=== PATIENT | female | born 1955 | race Caucasian/White ===

== ENCOUNTER 2024-05-30 14:45 | Outpatient (RCR) | payer MEDICARE, OTHER, SELFPAY | END 2024-07-20 13:09 | disposition home or self-care (01) | PROVIDERS: PCP Family Medicine; Visit Provider Student in an Organized Health Care Education/Training Program | DX: S46.912A Strain of unspecified muscle, fascia and tendon at shoulder and upper arm level, left arm, initial encounter (principal); M25.512 Pain in left shoulder; Z51.89 Encounter for other specified aftercare | CPT/HCPCS: 97012; 97110; 97140; 97162 ==

== ENCOUNTER 2024-07-15 15:58 | Outpatient (CLI) | payer MEDICARE, OTHER, SELFPAY | END 2024-07-15 15:59 | disposition home or self-care (01) | PROVIDERS: PCP Student in an Organized Health Care Education/Training Program; Visit Provider Family Medicine | DX: S09.93XA Unspecified injury of face, initial encounter (principal); W01.0XXA Fall on same level from slipping, tripping and stumbling without subsequent striking against object, initial encounter; Y92.009 Unspecified place in unspecified non-institutional (private) residence as the place of occurrence of the external cause | CPT/HCPCS: A0425; A0427 ==

== ENCOUNTER 2024-07-15 16:25 | Emergency (ER) | payer MEDICARE, OTHER, SELFPAY ==
[2024-07-15 16:25] VITALS: BP 169/100; PULSE 98; RESP 18; TEMP 36.9; O2SAT 99; BMI 29.7
--- NOTE | 2024-07-15 16:49 | ED.GENADULT ---
HPI - General Adult General Chief complaint: Laceration/Wound Stated complaint: Fall Time Seen by Provider: 07/15/24 16:27 History of Present Illness HPI narrative: This 69-year-old female comes in for evaluation of an injury that occurred just prior to arrival. She was carrying some water and beginning to go up some steps when she tripped and fell forward. She hit her nose on a step and had immediate bleeding from her nose. She does have a small laceration externally on the bridge of the nose also. Additionally she has pain in her right wrist with some swelling overlying the distal radius. She does not report any loss of consciousness. She does report a very mild headache. She does not report any neck pain. She was able to get up and ambulate after this event. She is not on any anticoagulants. Related Data Home Medications ?Medication ?Instructions ?Recorded ?Confirmed atorvastatin 20 mg tablet 20 mg PO DAILY 06/26/22 07/15/24 antiarthritic combination no.2 900 mg PO BID 09/27/23 07/10/24 mg tablet (glucosamine-chondroitin) calcium carbonate (Calcium 600) 1,500 mg PO BID 09/27/23 07/15/24 diphenhydramine HCl 25 mg capsule 25 mg PO QHS PRN 09/27/23 07/15/24 (Benadryl) multivitamin (Multiple Vitamins 1 tab PO QDAY 09/27/23 07/15/24 tablet) turmeric 400 mg capsule mg PO 09/27/23 07/10/24 ibuprofen 200 mg tablet 200 mg PO Q6H PRN 07/10/24 07/15/24 naproxen sodium 220 mg tablet 220 mg PO BID PRN 07/10/24 07/15/24 (Aleve) loratadine 10 mg capsule (Allergy 10 mg PO DAILY 07/15/24 07/15/24 Relief (loratadine)) melatonin 5 mg capsule 5 mg PO HS 07/15/24 07/15/24 Allergies Allergy/AdvReac Type Severity Reaction Status Date / Time No Known Drug Allergies Allergy Verified 07/10/24 13:41 Review of Systems Status of ROS: Reports: 10 or more systems reviewed and unremarkable except as noted in History and below Narrative: Constitutional: No fevers, no weight gain or loss. Eyes: No discharge. No vision changes. HENT: No congestion, no sore throat, no ear pain. Cardiovascular: No chest pain, no palpitations. Respiratory: No shortness of breath, no wheezes, no cough. Gastrointestinal: No abdominal pain, no vomiting, no diarrhea. Genitourinary: No dysuria, no hematuria. Musculoskeletal: Normal range of motion. Skin: No rashes, no pruritis. Neurological: No dizziness, weakness, sensory change, speech change. Endo/Heme/Allergies: No bruising or bleeding. No polydipsia. Pysch: no suicidality, no anxiety, no insomnia. All other systems reviewed and are negative. [facility] Medical History History of ectopic ?Z87.59 - Personal history of other complications of , childbirth and the puerperium (ICD-10) Surgical History Previous section ?Z98.891 - History of uterine scar from previous surgery (ICD-10) S/P foot surgery, right (08/19/10) ?Z98.890 - Other specified postprocedural states (ICD-10) Social History (Reviewed 09/27/23 @ 14:57 by Deborah Hodges ~ [facility], [facility]) Smoking Status: Never smoker Do you use any of these nicotine containing products: None How often do you have a drink containing alcohol: 4 or more times a week How many standard drinks containing alcohol do you have on a typical day: 1 or 2 AUDIT-C Alcohol total score: 4 Non-prescribed substance use: denies use Exam Narrative: Exam Narrative: Constitutional: Well-developed, well-nourished, no acute distress. HEENT: Small laceration on the bridge of the nose. Neck: Normal range of motion. Nontender. Supple. Heart: Regular. No murmurs. Normal rate. Intact distal pulses. Lungs: Clear to auscultation. No chest discomfort. No wheezes, rhonchi, or rales. Abdomen: Normal bowel sounds. Nontender. No rebound tenderness. Genitalia: Deferred. Back: No midline tenderness. Normal range of motion. Extremities: Swelling and bruising him a a right wrist at the distal radius. Skin: Intact. No rash. Warm. No erythema or pallor. Neurologic: No altered sensation. No weakness. Alert and oriented. Psychiatric: No suicidality. No anxiety or depression. No insomnia. Nursing notes and vitals signs are reviewed. Const: Vital Signs, click to edit/add: Vital Signs - 24 hr 07/15/24 16:25 Temperature 98.4 F Pulse Rate [Pulse Oximeter] 98 Respiratory Rate 18 Blood Pressure [Le ft Upper Arm] 169/100 H Pulse Oximetry 99 Oxygen Delivery Me thod Room Air Course Vital Signs Vital signs: Initial Vital Signs Temperature 98.4 F 07/15/24 16:25 Temperature Source Temporal Artery Scan 07/15/24 16:25 Pulse Rate 98 07/15/24 16:25 Pulse Rhythm Regular 07/15/24 16:25 Respiratory Rate 18 07/15/24 16:25 Blood Pressure 169/100 H 07/15/24 16:25 Blood Pressure Mean 123 H 07/15/24 16:25 Blood Pressure Position Sitting 07/15/24 16:25 Pulse Oximetry 99 07/15/24 16:25 Oxygen Delivery Method Room Air 07/15/24 16:25 Vital Signs Temperature 98.4 F 07/15/24 16:25 Pulse Rate 98 07/15/24 16:25 Respiratory Rate 18 07/15/24 16:25 Blood Pressure 169/100 H 07/15/24 16:25 Pulse Oximetry 99 07/15/24 16:25 Oxygen Delivery Method Room Air 07/15/24 16:25 Temperature 98.4 F 07/15/24 16:25 Pulse Rate 98 07/15/24 16:25 Respiratory Rate 18 07/15/24 16:25 Blood Pressure 169/100 H 07/15/24 16:25 Pulse Oximetry 99 07/15/24 16:25 Oxygen Delivery Method Room Air 07/15/24 16:25 Medical Decision Making MDM Narrative Medical decision making narrative: This patient comes in because of a fall that occurred just prior to arrival. She has a small laceration on the bridge of her nose that is punctate and not in need of any repair. There is no ongoing bleeding. CT imaging of her head shows no intracranial abnormality. She does have a moderately displaced nasal fracture. X-ray of the right wrist also shows a distal radius fracture that is intra-articular. The edges of the fracture are in rather good position so I simply placed a volar splint using Ortho Glass material. I advised her to follow-up with orthopedic clinic for ongoing management. Imaging Data XR R Wrist: Radiologist's impression: Intra-articular radial styloid process fracture. CT scan - head: Radiologist's impression: Moderately displaced nasal bone fracture. Discharge Plan Discharge Clinical Impression: Fracture of nasal bone, Fracture of wrist Patient Disposition: Home, Self-Care Condition: Stable Additional Instructions: Wear wrist splint and use [id number] medicines as needed and directed. Follow up with orthopedic clinic for ongoing management. Call [phone] for appointment. Prescriptions: No Action ibuprofen 200 mg tablet 200 mg PO Q6H PRN naproxen sodium [Aleve] 220 mg tablet 220 mg PO BID PRN atorvastatin 20 mg tablet 20 mg PO DAILY calcium carbonate [Calcium 600] 600 mg calcium (1,500 mg) tablet 1,500 mg PO BID glucosamine-chondroitin 900 mg tablet PO BID turmeric 400 mg capsule PO multivitamin [Multiple Vitamins] Tablet 1 tab PO QDAY diphenhydramine HCl [Benadryl] 25 mg capsule 25 mg PO QHS PRN melatonin 5 mg capsule 5 mg PO HS Allergy Relief (loratadine) 10 mg capsule 10 mg PO DAILY Follow Up/Referrals: Lit Cheek MD [Primary Care Provider] - Stand Alone Forms: PrivacyCentral Info Instructions
[2024-07-15 18:25] VITALS: BP 149/88; PULSE 88; RESP 18; O2SAT 98
--- OUTSIDE RECORDS SUMMARY | 2024-07-15 18:30 | XMS_ITS | Clinical Summary ---
Author Organization [facility] Address [address] [place] [id number] Care Team Providers Care Criminal Defense Attorney Name Role Phone Melina Ambrose Primary Care Provider [phone] Allergies No known active allergies Medications multivitamin (MVI) tablet Take 1 tablet by mouth once daily. 0 1 Active ibuprofen (ADVIL; MOTRIN) 200 mg tablet Take 2 tablets by mouth 4 times daily if needed. 0 8 Active naproxen (ALEVE) 220 mg tablet Take 1 tablet by mouth 2 times daily with meals. 0 8 Active diphenhydrAMINE (BENADRYL) 25 mg capsule Active loratadine (Allergy Relief, loratadine,) 10 mg tablet Active melatonin 5 mg tab tablet Active calcium carbonate/vitamin D2 (CALCIUM 600 + D ORAL) 2 Active atorvastatin (LIPITOR) 20 mg tabletIndications:H yperlipidemia, unspecified hyperlipidemia type TAKE 1 TABLET(20 MG) BY MOUTH AT BEDTIME 90 Tablet 2 4 Active turmeric 400 mg cap Take 400 mg by mouth one time. Active glucosam-chondroiti n-diet cb25 116-100 mg cap Take by mouth two times daily. Active Active Problems Problem Noted Date Diagnosed Date Chronic pain of both knees 09/10/2023 Hyperlipidemia 09/10/2023 Left leg paresthesias 07/28/2021 Colon polyp 12/15/2010 Overview (09/30/2021): Colonoscopy 11/2010 polyp repeat in 5 years Colonoscopy 09/2021 normal, repeat in 10 years with propofol Allergic rhinitis, cause unspecified OSTEOPENIA Overview (07/12/2007): at the femoral necks bone density done 12/16/04 Resolved Problems Problem Noted Date Diagnosed Date Resolved Date Insomnia, idiopathic 07/28/2021 024 Routine general medical exam ination at a health care facility 07/28/2021 Overview (07/12/2007): Lipids - 12/08/04 - cholesterol - 207, TG - 83, LDL - 123 Dexa- 12/16/04 mammo-? Colon - has h/o colon polyps, no date avail. for last colonoscopy Pap/pelvic -12/09/02 - neg Thyroid- none found Hep B- 02/07/97, 10/01/04 Hep A - 10/01/04 Tetanus-02/12/97 Diabetic-no Stress test - - for exercise induced SVT Encounters Date Type Department Care Team Description 06/15/2024 2:00 PM HOT BLAST WORKER Ancillary Procedure [facility] [address] [place] [address] 06/15/2024 Travel 06/13/2024 11:30 AM HOT BLAST WORKER Ancillary Procedure [facility] [address] [place] [address] 06/12/2024 Travel 06/08/2024 2:05 PM HOT BLAST WORKER Office Visit [facility] [address] [place] [address] Melina Ambrose, DO Follow Up (Left shoulder pain since 02/02/24 /ROM has improved a little since PT /Pain at worse 01/24); Establish Care 06/08/2024 Travel from Last 3 Months Immunizations Name Administration Dates Next Due AMB Influenza, IIV4 PF (=>6 mos Flulaval,Fluzone Fluarix)(Flu Clinic Only) 04/04/2018 Amb Influenza, Inactivated A IIV4 (Age 65+ Years) Preserv Free 02/07/2020 COVID-19 VACCINE SPIKEVAX (M ODERNA 50MCG/0.5ML) 12YO+ PFS 09/10/2023 COVID-19 vaccine (Pfizer-Bio NTech 10mcg/0.2mL) 5-11YO BIVALENT PF, MDV 02/17/2024 COVID-19 vaccine (Pfizer-Bio NTech 30mcg/0.3mL) 12YO+ BIVALENT PF, MDV 11/23/2022,02/02/2022 COVID-19 vaccine (Pfizer-Bio NTech 30mcg/0.3mL) 12YO+ BENNETT-SUCROSE PF, MDV 09/03/2021 COVID-19 vaccine (Pfizer-Bio NTech 30mcg/0.3mL) PF, MDV 03/19/2021 Hepatitis A (Adult) 10/01/2004 Hepatitis B (Adult) 10/01/2004,02/07/1997 Influenza A (H1N1), Inactiva patria (Age >=3 Years) 07/04/2009 Influenza, High-dose Inactivated 03/07/2024 Influenza, High-dose Quadriv alent Inactivated 02/11/2023,03/12/2021 Influenza, IIV3 (Age >=3 years) 06/02/19 14,07/13/2011,07/04/2009,04/04 Influenza, Inactivated AIIV4 (Age 65+ Years) Preserv Free 01/21/2022 Pneumococcal Conj 20-valent (Prevnar 20) 07/31/2022 Pneumococcal Poly,23-Valent (Pneumovax) 07/28/2021 RSV, Recombinant ADJ Reconst ituted (Arexvy 120MCG/0.5mL) 06/01/2023 Td (Age >=7 Years) 02/12/1997 Tdap 08/19/2021,07/04/2009 Zoster (Shingrix-RZV, recombinant) 12/08/2021, Family History Medical History Relation Name Comments Heart attack Daughter DC and stent ag e 41 Heart Disease Father at ag e 54 of DC Cancer-breast Maternal Aunt 2 aunts Cancer Mother 2006 malignant melan joshua Cancer-breast Mother 2007 non-genetic fo rm of breast cancer Diabetes Paternal Grandfather Relation Name Status Comments Daughter Alive Father age 54/DC Maternal Aunt Mother 2007 Alive Paternal Grandfather Social History Tobacco Use Types Packs/Day Years Used Date Smoking Tobacco: Never Passive Smoke Exposure: Never Smokeless Tobacco: Never Tobacco Cessation:Counseling Given: Yes Alcohol Use Standard Drinks/Week Comments Yes 0 (1 standard drink = 0.6 oz pur e alcohol) one daily PHQ-2 Answer Date Recorded PHQ-2 TOTAL SCORE 0 09/10/2023 Social Connections Answer Date Recorded Do you often feel lonely or isolated from those around you? 0 09/10/2023 Financial Resource Strain Answer Date R ecorded Difficulty of Paying Living Expenses 3 09/10/2023 Difficulty of Paying Living Expenses Not on file 09/10/2023 Food Insecurity Answer Date Recorded Do you worry your food will run out before you are able to buy more? 1 09/10/2023 Transportation Needs Answer Date Record ed Does lack of transportation keep you from medica l appointments? 1 09/10/2023 Does lack of transportation keep you from work, meetings or getting things that you need? 1 09/10/2023 Housing Stability Answer Date Recorded What is your housing situation today? 1 09/10/2023 Utilities Answer Date Recorded Do you have trouble paying f or utilities (for example, heat, electricity, water, phone)? 1 09/10/2023 Comments No Sex and Gender Information Value Date Recorded Sex Assigned at Not on file Legal Sex Female 5:41 AM HOT BLAST WORKER Gender Identity Not on file Sexual Orientation Not on file Obstetrics History Last Filed Vital Signs Vital Sign Reading Time Taken Comments Blood Pressure 155/85 06/08/2024 2:19 PM HOT BLAST WORKER Pulse 92 06/08/2024 2:19 PM HOT BLAST WORKER Temperature 36.7 C (98.1 F) 09/13/2017 11:51 AM CDT Respiratory Rate 18 01/18/2015 5:21 PM CDT Oxygen Saturation 90% 06/08/2024 2:19 PM HOT BLAST WORKER Inhaled Oxygen Concentration - - Weight 70.5 kg (155 lb 8 oz) 06/08/2024 2:19 PM HOT BLAST WORKER Height 153.1 cm (5' 0.28) 09/10/2023 10:43 AM C DT Body Mass Index 30.09 09/10/2023 10:43 AM CDT Plan of Treatment Upcoming Encounters Date Type Department Care Team (Late st Contact Info) Description 08/16/2024 1:00 PM CDT Office Visit [facility] [address] [place] [address] Brendon Lanier MD [address] [place] [address] 09/15/2024 2:05 PM CDT Office Visit [facility] [address] [place] [address] Melina Ambrose DO [address] [place] [address] 10/13/2024 2:05 PM CDT Office Visit [facility] [address] [facility] [place] [address] Melina Ambrose DO [address] [place] [address] Health Maintenance Due Date Last Done Comments COVID-19 vaccine series ( season) 2024 02/17/2024, 09/10/2023, 02/17/2023, Additional history exists BMI (ht and wt on same day) for age 18+ 09/09/2024 09/10/2023, 07/31/2022, 07/28/2021, Additional history exists Depression screening for age 12+ 09/09/2024 09/10/2023, 07/31/2022, 07/28/2021, Additional history exists Medicare Wellness for age 65+ 09/10/2024, 07/31/2022, 07/28/2021 Mammogram for age 45-75 10/12/2024 10/13/19 24, 09/08/2022, 08/05/2021 Lipids for age 45-75 09/09/2028 09/10/2023, 07/31/2022, 10/28/2021, Additional history exists Tetanus booster 08/20/2031 08/19/2021, 06/17, 02/12/1997 Colonoscopy through age 75 10/01/203109/30, 09/30/2021, 09/30/2021, Additional history exists Hepatitis C screening for ag e 18-79 Completed 07/28/2021 Tdap Completed 08/19/2021, 07/04/2009 Zoster (shingles) series for age 50+ Completed 12/08/2021, 08/26/2021 Pneumococcal series for age 50+ Completed , 07/28/2021 RSV vaccine for adults or Completed 06/01/2023 Influenza for age 65+ Completed 03/07/2024 , 02/11/2023, 01/21/2022, Additional history exists DEXA/DXA scan for age 65+ Completed 06/13/2024, Procedures Procedure Name Priority Date/Time Associated Diagnosis Comments MR SHOULDER LEFT WO Routine 06/15/2024 2 :34 PM HOT BLAST WORKER Chronic left shoulder pain XR DXA BONE DENSITY 2 SITES AXIAL Routine 06/13/2024 11:57 AM HOT BLAST WORKER Postmenopausal XR MAMMO BOBBI BILAT SCREEN Routine 10/13/2023 12:10 PM CDT Encounter for screening mammogram for malignant neoplasm of breast LIPID PANEL W REFLEX MEASURED LDL Routine 09/10/2023 11:46 AM CDT Hyperlipidemia, unspecified hyperlipidemia type COLONOSCOPY SCREENING Routine 09/30/2021 12:57 PM CDT History of colon polyps ANTI HCV Routine 07/28/2021 4:17 PM CDT Need for hepatitis C screening test from Last 3 Months or Most Recently Relevant to Health Maintenance Results * MR SHOULDER LEFT WO (06/15/2024 2:34 PM HOT BLAST WORKER) Anatomical Region Laterality Modality SHOULDER L Magnetic Resonan ce 06/16/2024 11:1 2 AM HOT BLAST WORKER Impressions 06/16/2024 11:12 AM HOT BLAST WORKER 1. Glenohumeral chondromalacia. No significant secondary degenerative changes. 2. Cartilaginous intra-articular bodies favored over focal synovitis for the well-defined oval intermediate signal filling defects subscapular recess and axillary recess. 3. Minor AC DJD. 4. Mild subacromial/subdeltoid bursitis. Dictated by Brendon Reilly MD @ 06/16/2024 11:12:28 AM (Electronically Signed) Narrative 06/16/2024 11:12 AM HOT BLAST WORKER For Patients: As a result of the Cures Act, medical imaging exams and procedure reports are released immediately into your electronic medical record. You may view this report before your referring provider. If you have questions, please contact your health care provider. EXAM: MRI OF THE LEFT SHOULDER, WITHOUT CONTRAST CLINICAL INDICATION: Chronic pain. PRIOR SURGERY: None reported. COMPARISON PLAIN FILMS: 22 February 2024 COMPARISON CROSS-SECTIONAL IMAGING STUDIES: None available at time of interpretation. TECHNICAL: Axial, sagittal oblique and coronal oblique T1, PD, PD FS and T2-weighted images. FINDINGS: GLENOHUMERAL JOINT: Effusion/Cyst: Upper normal physiologic quantity of joint fluid. No paralabral or periarticular cyst or ganglion. Humeral Head Articular Cartilage: Diffuse high-grade 2 to grade 3 thinning. No secondary degenerative changes significance. Glenoid Articular Cartilage: Grade 2 thinning. Loose Bodies: Overall intermediate signal roughly 7 x 4 mm filling defects in the posterior axillary recess and subscapular recess (image 9 and 14 series 12 and image 18 and 10 series 8). Capsule: No convincing evidence of adhesive capsulitis or capsular injury. OSSEOUS STRUCTURES: No fracture, marrow edema or marrow replacement process. CORACOACROMIAL ARCH: Acromial Morphology: Type 1 acromial morphology. Slight anterior and lateral downsloping. No os acromiale. No significant subacromial spur. Lateral acromial thickness is 7 mm. Acromiohumeral Interval: The acromiohumeral interval is adequately patent. At its narrowest, the interval measures 6 mm. No abnormal thickening of the coracoacromial ligament. Coracohumeral Interval: The coracohumeral interval is normal. At its narrowest, the coracohumeral interval measures greater than 10 mm. Coracoid index is less than 10 mm. ACROMIOCLAVICULAR JOINT REGION: AC Joint: Mild degenerative arthrosis. No significant osteophyte or joint space widening. Ligaments: The coracoclavicular ligaments are intact. BURSAE: Subacromial-Subdeltoid: Thin line of fluid and edema with some intermediate signal synovitis. Subcoracoid: No abnormal bursal edema, thickening or bursal fluid. ROTATOR CUFF TENDONS AND MUSCLES AND DELTOID: Supraspinatus: No tendinosis, tendon tearing, muscle atrophy or muscle edema. Infraspinatus: No tendinosis, tendon tearing, muscle atrophy or muscle edema. Teres Minor: No tendinosis, tendon tearing, muscle atrophy or muscle edema. Subscapularis: No tendinosis, tendon tearing, muscle atrophy or muscle edema. Deltoid: No muscle atrophy or edema. BICEPS TENDON, LONG HEAD: The long head of the biceps tendon is appropriately positioned within the bicipital groove without tendon subluxation or dislocation. The biceps angel mechanism is intact. The biceps anchor appears grossly intact. There is no significant tendinosis or tendon tearing. GLENOID LABRUM: Within the limitations of non-arthrographic technique, the superior labrum and biceps-labral complex are intact. The anteroinferior labrum is intact without Bankart or Bankart-variant labral tear. The remainder of the labrum is similarly intact. OTHER FINDINGS: There is no abnormality within the suprascapular or spinoglenoid notches nor within the quadrilateral space. No axillary adenopathy or mass. Procedure Note Brendon Reilly MD - 06/16/2024 For Patients: As a result of the Century Cures Act, medical imagingexams and procedure reports are released immediately into your electronicmedical record. You may view this report before your referring provider.If you have questions, please contact your health care provider. EXAM: MRI OF THE LEFT SHOULDER, WITHOUT CONTRAST CLINICAL INDICATION: Chronic pain. PRIOR SURGERY: None reported. COMPARISON PLAIN FILMS: 22 February 2024 COMPARISON CROSS-SECTIONAL IMAGING STUDIES: None available at time of interpretation. TECHNICAL: Axial, sagittal oblique and coronal oblique T1, PD, PD FS and T2-weightedimages. FINDINGS: GLENOHUMERAL JOINT: Effusion/Cyst: Upper normal physiologic quantity of joint fluid. Noparalabral or periarticular cyst or ganglion. Humeral Head Articular Cartilage: Diffuse high-grade 2 to grade 3thinning. No secondary degenerative changes significance. Glenoid Articular Cartilage: Grade 2 thinning. Loose Bodies: Overall intermediate signal roughly 7 x 4 mm filling defectsin the posterior axillary recess and subscapular recess (image 9 and 14series 12 and image 18 and 10 series 8). Capsule: No convincing evidence of adhesive capsulitis or capsular injury. OSSEOUS STRUCTURES: No fracture, marrow edema or marrow replacement process. CORACOACROMIAL ARCH: Acromial Morphology: Type 1 acromial morphology. Slight anterior andlateral downsloping. No os acromiale. No significant subacromial spur.Lateral acromial thickness is 7 mm. Acromiohumeral Interval: The acromiohumeral interval is adequately patent.At its narrowest, the interval measures 6 mm. No abnormal thickening ofthe coracoacromial ligament. Coracohumeral Interval: The coracohumeral interval is normal. At itsnarrowest, the coracohumeral interval measures greater than 10 mm.Coracoid index is less than 10 mm. ACROMIOCLAVICULAR JOINT REGION: AC Joint: Mild degenerative arthrosis. No significant osteophyte or jointspace widening. Ligaments: The coracoclavicular ligaments are intact. BURSAE: Subacromial-Subdeltoid: Thin line of fluid and edema with someintermediate signal synovitis. Subcoracoid: No abnormal bursal edema, thickening or bursal fluid. ROTATOR CUFF TENDONS AND MUSCLES AND DELTOID: Supraspinatus: No tendinosis, tendon tearing, muscle atrophy or muscleedema. Infraspinatus: No tendinosis, tendon tearing, muscle atrophy or muscleedema. Teres Minor: No tendinosis, tendon tearing, muscle atrophy or muscleedema. Subscapularis: No tendinosis, tendon tearing, muscle atrophy or muscleedema. Deltoid: No muscle atrophy or edema. BICEPS TENDON, LONG HEAD: The long head of the biceps tendon is appropriately positioned within thebicipital groove without tendon subluxation or dislocation. The bicepspulley mechanism is intact. The biceps anchor appears grossly intact.There is no significant tendinosis or tendon tearing. GLENOID LABRUM: Within the limitations of non-arthrographic technique, the superior labrumand biceps-labral complex are intact. The anteroinferior labrum is intactwithout Bankart or Bankart-variant labral tear. The remainder of thelabrum is similarly intact. OTHER FINDINGS: There is no abnormality within the suprascapular or spinoglenoid notchesnor within the quadrilateral space. No axillary adenopathy or mass. IMPRESSION: 1. Glenohumeral chondromalacia. No significant secondary degenerativechanges. 2. Cartilaginous intra-articular bodies favored over focal synovitis forthe well-defined oval intermediate signal filling defects subscapularrecess and axillary recess. 3. Minor AC DJD. 4. Mild subacromial/subdeltoid bursitis. Dictated by Brendon Reilly MD @ 06/16/2024 11:12:28 AM (Electronically Signed) us Melina Ambrose DO MR Final Result * (ABNORMAL) XR DXA BONE DENSITY 2 SITES AXIAL (06/13/2024 11:57 AM HOT BLAST WORKER) Anatomical Region Laterality Modality Spine, HIPS, HIPL, HIPR Other Impressions 06/20/2024 1:30 PM HOT BLAST WORKER Osteopenia RECOMMENDATIONS: The National Osteoporosis Foundation recommends pharmacologic treatment for patients with T-scores of -2.5 or less, patients with prior history of fragility fractures, or patients with 10-year probability of greater than 3% at hips or greater than 20% of suffering major osteoporotic fractures. Recommend continued optimization of calcium and vitamin D intake through dietary means and/or supplementation and regular exercise. Consider pharmacologic therapy for osteopenia with increased fracture risk. Follow-up bone density reading in 2 years if therapy initiated to assess therapeutic efficacy. Ivett Gauthier PA-C [facility] 06/20/2024 Narrative 06/20/2024 1:30 PM HOT BLAST WORKER For Patients: Results are automatically released to your [employer] ([employer]) account once available, in compliance with federal regulations. This means that you may see your results before your provider has had a chance to review them. Please allow 2-3 business days for your provider to comment on the results. XR DXA Bone Mineral Density (BMD) EXAM LOCATION: [facility] [address] [facility] [address] PATIENT NAME: Ava M West DATE OF : 1955 EXAM DATE: 06/13/2024 REQUESTING PROVIDER: Lit Cheek MD GENDER AT : female HEIGHT: 5' 0.28 (09/10/2023) WEIGHT: 155 lb 8 oz (06/08/2024) MENOPAUSAL STATUS: Postmenopausal RACE/ETHNICITY: White RISK FACTORS: White Race CURRENT MEDICATION FOR BONE LOSS: NONE INDICATION: Follow-up of existing osteopenia and Post-Menopause COMPARISON DATE(S): 2021 DXA scans are compared to prior studies for a patient only when the two (or more) studies were performed on the same scanner. It is not possible to compare data generated on one scanner to data from another because there are not standards in DXA equipment. This applies even if the two scanners are made by the same ditching machine operator. PROCEDURE: Dual-energy x-ray absorptiometry performed with routine technique. Reporting is completed in the form of a T-score. The T-score represents the standard deviation from peak bone mass based on young healthy adult. A Z-score is used for diagnosis in premenopausal women, and for men under the age of 50. FINDINGS: RESULT LUMBAR SPINE L1 - L2 BMD: 0.960 g/cm2 T-Score: - 1.8 Z-Score: - 0.3 Change from prior in 2021: Decrease 5.0%. RESULTS FEMUR Left femoral neck BMD: 0.725 g/cm2 T-Score: - 2.3 Z-Score: - 0.7 Change from prior in 2021: Increase 0.4%. Right femoral neck BMD: 0.703 g/cm2 T-Score: - 2.4 Z-Score: - 0.8 Change from prior in 2021: Decrease 2.2%. Left hip BMD: 0.893 g/cm2 T-Score: - 0.9 Z-Score: + 0.4 Change from prior in 2021: Increase 2.2%. Right hip BMD: 0.848 g/cm2 T-Score: - 1.3 Z-Score: + 0.1 Change from prior in 2021: Decrease 4.5%. WHO criteria: Normal: T-score at or above -1 SD Osteopenia: T-score between -1.1 and -2.4 SD Osteoporosis: T-score at or below -2.5 SD FRAX RISK CALCULATION (USED FOR OSTEOPENIA ONLY): 10-year probability of major osteoporotic fracture: 13.8%. 10-year probability of hip fracture: 3.3%. Lit Cheek MD DEXA Final Result * XR MAMMO BOBBI BILAT SCREEN (10/13/2023 12:10 PM CDT) Anatomical Region Laterality Modality BREASTS, Breast Left, Breast Right Bilateral Mammography Impressions 10/13/2023 3:01 PM CDT There is no radiographic evidence for malignancy. Recommend annual mammograms. MAMMOGRAM ASSESSMENT: ACR 1 Negative PATIENTS: You will also receive a letter with your examination results in an easy to read format. If you have questions about your results, please contact your referring provider. Narrative 10/13/2023 3:01 PM CDT For Patients: As a result of the Cures Act, medical imaging exams and procedure reports are released immediately into your electronic medical record. You may view this report before your referring provider. If you have questions, please contact your health care provider. XR MAMMO BOBBI BILAT SCREEN [[id number]] CLINICAL HISTORY: This is an asymptomatic 68 y.o. patient. INDICATION FOR EXAM: Mammogram Screening. TECHNIQUE: CC & MLO views were obtained. This study was evaluated with the assistance of Computer-Aided Detection. Breast Tomosynthesis was used in interpretation. COMPARISON FILM: Yes 09/08/22 [employer] [employer] [facility] FINDINGS: The breasts are heterogeneously dense, which may obscure small masses. There are no dominant masses, suspicious micro calcifications or areas of architectural distortion. Lit Cheek MD MAMMO Final Result * LIPID PANEL W REFLEX MEASURED LDL (09/10/2023 11:46 AM CDT) CHOLESTEROL,TOTAL 189 100 - 199 mg/dL 09/10/2023 10:12 PM CDT [facility] Comment: Cholesterol, Total Reference Ranges Desirable <200 mg/dL Borderline 200-239 mg/dL High >=240 mg/dL TRIGLYCERIDES 76 <150 mg/dL 09/10/2023 10:12 PM CDT [facility] HDL CHOLESTEROL 77 >40 mg/dL 10:12 PM CDT [facility] NON-HDL CHOLESTEROL 112 <145 mg/dl 09/10/2023 10:12 PM CDT [facility] CHOL/HDL RATIO 2.45 <4.50 09/10/2023 10:12 PM CDT [facility] LDL CHOLESTEROL 97 <=130 mg/dL 09/10/2023 10:12 PM CDT [facility] VLDL CHOLESTEROL 15 <=30 mg/dL 09/10/2023 10:12 PM CDT [facility] PROVIDER ORDERED STATUS RANDOM 09/10/2023 10:12 PM CDT [facility] Blood BLOOD SPECIMEN / Unknown Venipuncture / Unknown 09/10/2023 11:46 AM CDT 09/10/2023 11:48 AM CDT Lit Cheek MD CHEMISTRY Final Result [facility] [address] [place] [address], [place] * COLONOSCOPY (09/30/2021 1:22 PM CDT) 09/30/2021 1:22 PM CDT Narrative Transcriptions Sumanth Sky MD - 09/30/2021 1:50 PM CDT Patient Name: Ava West Procedure Date: 09/30/2021 Gender: Female Date of : 1955 Admit Type: Outpatient Procedure: Colonoscopy Proceduralist: Sumanth Sky MD , Celestina Escobar (Nurse) Referring MD: Lit Cheek Indications/Pre-Op Diagnosis: High risk colon cancer surveillance:Personal history of adenoma less than 10 mm in size, Last colonoscopy: June 2011 Medications: Fentanyl 200 micrograms IV, Midazolam 4 mgIV, The level of sedation administered wasmoderate Procedure Description: The patient had risks, benefits and alternatives explained to andgave informed consent. The patient had a stable cardiopulmonary status and judged an adequate candidate for conscious sedation. The [id number] was passed through the anus and advanced tothe cecum, identified by appendiceal orifice and ileocecal valve. The colonoscopy was performed without difficulty. The patient toleratedthe procedure well. The quality of the bowel preparation was good. The ileocecal valve, appendiceal orifice, and rectum were photographed. Complications: No immediate complications. Estimated Blood Loss & Specimen: Estimated blood loss: none. Specimen collected - None Findings: The perianal and digital rectal examinations were normal. The exam was otherwise without abnormality on direct and retroflexion views. Impressions/Post-Op Diagnosis: - The examination was otherwise normal on direct and retroflexionviews. - No specimens collected. Recommendation: - Patient has a contact number available for emergencies. The signsand symptoms of potential delayed complications were discussed with the patient. Return to normal activities tomorrow. Written discharge instructions were provided to the patient. - Patient has a contact number available for emergencies. The signsand symptoms of potential delayed complications were discussed with the patient. Return to normal activities tomorrow. Written discharge instructions were provided to the patient. - Resume previous diet. - Continue present medications. - Repeat colonoscopy in 10 years for surveillance. - Patient's sedation for a repeat study will require Anesthesia staff assistance. Moderate Sedation: Moderate (conscious) sedation was administered by the endoscopy nurse and supervised by the endoscopist. The following parameters were monitored: oxygen saturation, heart rate, respiratory rate, blood pressure, adequacy of pulmonary ventilation and reponse to care. Please refer to the patient's medical record flowsheets and nursing notes for moderate sedation details. Total physician intraservice time was 20 minutes. Sumanth Sky MD 09/30/2021 1:50:29 PM This report has been signed electronically. Note Initiated On: 09/30/2021 1:22 PM Procedure Code(s): --- Professional --- 34395, Colonoscopy, flexible; diagnostic, including collection of specimen(s) bybrushing or washing, when performed (separateprocedure) Diagnosis Code(s): --- Professional --- Z86.010, Personal history of colonicpolyps CPT copyright 2020 [employer]. All rights reserved. The codes documented in this report are preliminary and upon vice president investor relations reviewmay be revised to meet current compliance requirements. Scope In: 1:26:24 PM Scope Withdrawal Time 0 hours 7 minutes 49 seconds Scope Out: 1:41:19 PM us Sumanth Sky MD PROCEDURE ORD Final Res ult * ANTI HCV (07/28/2021 4:17 PM CDT) HEPATITIS C ANTIBODY Non-React agustín Non-React agustín 07/29/2021 5:57 PM CDT [facility] Comment:Antibodies to HCV no t detected; does not exclude the possibility of exposure to HCV. Blood BLOOD SPECIMEN / Unknown Venipuncture / Unknown 07/28/2021 4:17 PM CDT 07/28/2021 4:18 PM CDT us Lit Cheek MD SEND OUTS Final Result [facility] [address] [place] [address], [place] from Last 3 Months or Most Recently Relevant to Health Maintenance Insurance MEDICARE PB ONLY [place] [id number] MEDICARE PART A HB ONLY Care Teams Criminal Defense Attorney Relationship Specialty Start Date End Date Melina Ambrose DO [address] [place] [address] PCP - General Family Practice 06/08/24
[2024-07-15 18:36] VITALS: BP 149/88; PULSE 88; RESP 18; TEMP 36.9
== END 2024-07-15 18:37 | disposition home or self-care (01) ==
PROVIDERS: Emergency Provider Emergency Medicine Emergency Medical Services; PCP Student in an Organized Health Care Education/Training Program
DX: S02.2XXA Fracture of nasal bones, initial encounter for closed fracture (principal); W10.9XXA Fall (on) (from) unspecified stairs and steps, initial encounter; S52.511A Displaced fracture of right radial styloid process, initial encounter for closed fracture
CPT/HCPCS: 29125; 70450; 70486; 73110; 99284

== ENCOUNTER 2024-10-10 13:45 | Outpatient (RCR) | payer MEDICARE, OTHER, SELFPAY | END 2024-10-11 11:06 | disposition home or self-care (01) | PROVIDERS: PCP Student in an Organized Health Care Education/Training Program; Visit Provider Family Medicine | DX: M19.012 Primary osteoarthritis, left shoulder (principal); M75.42 Impingement syndrome of left shoulder; Z51.89 Encounter for other specified aftercare | CPT/HCPCS: 97110; 97140; 97161 ==

== ENCOUNTER 2024-10-20 15:29 | Emergency (ER) | payer MEDICARE, OTHER, SELFPAY ==
[2024-10-20 15:33] VITALS: BP 161/96; PULSE 110; RESP 18; TEMP 36.9; O2SAT 98; BMI 30.3
--- NOTE | 2024-10-20 15:41 | ED_ITS ---
HPI - General Adult General Chief complaint: Extremity Pain/Injury, Upper Stated complaint: hurt head/left hand ring finger Time Seen by Provider: 10/20/24 15:34 History of Present Illness HPI narrative: Patient present to the emergency department complaining of an injury to her left hand, Patient was putting together a bed at home and tripped. Patient stuck her hand out to catch herself and her finger was deformed. Patient has a ring on that finger. Did put ice on the finger and that has helped. Finger is now straighter than it was initially. 69-year-old woman presenting to the emergency department with concern of an injury to her left ring finger. Fell and was putting out her hand struck her finger and this was deformed. Was swollen about twice the size. This has markedly improved may be related to icing that she has done. Finger is a little straighter now as well. She is not complaining of significant pain. She has not yet managed to remove the ring on this finger. Related Data Home Medications ?Medication ?Instructions ?Recorded ?Confirmed atorvastatin 20 mg tablet 20 mg PO DAILY 06/26/2210/15 antiarthritic combination no.2 900 mg PO BID 09/27/23 10/24/24 mg tablet (glucosamine-chondroitin) calcium carbonate (Calcium 600) 1,500 mg PO BID 10/24/24 diphenhydramine HCl 25 mg capsule 25 mg PO QHS PRN 10/24/24 (Benadryl) multivitamin (Multiple Vitamins 1 tab PO QDAY 09/27/23 10/24/24 tablet) turmeric 400 mg capsule mg PO 09/27/23 10/24/24 ibuprofen 200 mg tablet 200 mg PO Q6H PRN 07/10/24 0 10/24/24 naproxen sodium 220 mg tablet 220 mg PO BID PRN 10/24/24 (Aleve) loratadine 10 mg capsule (Allergy 10 mg PO DAILY 07/1510/24/24 Relief (loratadine)) melatonin 5 mg capsule 5 mg PO HS 07/15/24 10/24/24 Allergies Allergy/AdvReac Type Severity Reaction Status Date / Time No Known Drug Allergies Allergy Verified 10/24/24 13:05 Review of Systems Status of ROS: Reports: 6 or more systems reviewed and unremarkable except as noted in History and below [facility] Medical History (Updated 10/23/24 @ 14:54 by Tracey Taylor) Vitamin D deficiency ?E55.9 - Vitamin D deficiency, unspecified (ICD-10) Left leg paresthesias ?R20.2 - Paresthesia of skin (ICD-10) Chronic pain of both knees ?M25.561 - Pain in right knee (ICD-10) ?M25.562 - Pain in left knee (ICD-10) ?G89.29 - Other chronic pain (ICD-10) Osteopenia ?M85.80 - Other specified disorders of bone density and structure, unspecified site (ICD-10) Colon polyp ?K63.5 - Polyp of colon (ICD-10) Fracture closed, nasal bone ?S02.2XXA - Fracture of nasal bones, initial encounter for closed fracture (ICD-10) Allergic rhinitis, cause unspecified ?J30.9 - Allergic rhinitis, unspecified (ICD-10) Hyperlipidemia ?E78.5 - Hyperlipidemia, unspecified (ICD-10) History of ectopic ?Z87.59 - Personal history of other complications of , childbirth and the puerperium (ICD-10) Surgical History (Updated 10/23/24 @ 11:36 by Ankita Hoskins ~ COILED COIL INSPECTOR, COILED COIL INSPECTOR) H/O wisdom tooth extraction ?K08.409 - Partial loss of teeth, unspecified cause, unspecified class (ICD- 10) Previous section ?Z98.891 - History of uterine scar from previous surgery (ICD-10) S/P foot surgery, right (08/19/10) ?Z98.890 - Other specified postprocedural states (ICD-10) Social History Smoking Status: Never smoker Do you use any of these nicotine containing products: None How often do you have a drink containing alcohol: 4 or more times a week How many standard drinks containing alcohol do you have on a typical day: 1 or 2 AUDIT-C Alcohol total score: 4 Non-prescribed substance use: denies use Exam Narrative: Exam Narrative: Pleasant. NAD. Icing her left hand. Head looks atraumatic. Only injury about the left hand and wrist looks to be a deformity at the proximal interphalangeal joint of the 4th finger. Does not appear to be fully located. Mildly swollen. The ring on this finger looks to not be excessively tight at this time Const: Vital Signs, click to edit/add: Vital Signs - 24 hr 10/20/24 15:33 Temperature 98.4 F Pulse Rate [Right Pulse Oximeter] 110 H Respiratory Rate 18 Blood Pressure [Ri ght Upper Arm] 161/96 H Pulse Oximetry 98 Oxygen Delivery Me thod Room Air Documenting provider has reviewed patient's vital signs: yes Course Vital Signs Vital signs: Initial Vital Signs Temperature 98.4 F 10/20/24 15:33 Temperature Source Temporal Artery Scan 10/20/24 15:33 Pulse Rate 110 H 10/20/24 15:33 Pulse Rhythm Regular 10/20/24 15:33 Pulse Strength 3+ Normal 10/20/24 15:33 Respiratory Rate 18 10/20/24 15:33 Blood Pressure 161/96 H 10/20/24 15:33 Blood Pressure Mean 117 H 10/20/24 15:33 Blood Pressure Position Sitting 10/20/24 15:33 Pulse Oximetry 98 10/20/24 15:33 Oxygen Delivery Method Room Air 10/20/24 15:33 Vital Signs Temperature 98.4 F 10/20/24 15:33 Pulse Rate 110 H 10/20/24 15:33 Respiratory Rate 18 10/20/24 15:33 Blood Pressure 161/96 H 10/20/24 15:33 Pulse Oximetry 98 10/20/24 15:33 Oxygen Delivery Method Room Air 10/20/24 15:33 Temperature 98.4 F 10/20/24 15:33 Pulse Rate 110 H 10/20/24 15:33 Respiratory Rate 18 10/20/24 15:33 Blood Pressure 161/96 H 10/20/24 15:33 Pulse Oximetry 98 10/20/24 15:33 Oxygen Delivery Method Room Air 10/20/24 15:33 Medications Administered Medications: Discontinued Medications Generic Name Dose Route Start Last Admin Trade Name Freq PRN Reason Stop Dose Admin Bupivacaine HCl 10 ml 10/20/24 18:21 10/20/24 18:23 Bupivacaine 0.25% 30 Ml INJECTION 10/20/24 18:22 10 ml ONCE ONE Administration Medical Decision Making MDM Narrative Medical decision making narrative: Appears to have a dislocation of this PIP joint. Prior to reduction, I would like to know whether not there is a fracture here possibly remove this ring. Will be going for x-ray shortly On independent X-ray reviewed by me does show dislocation of the proximal aspect of the middle phalanx on the proximal phalanx at the PIP joint. I do not see fracture Returned to attempt relocation. Still quite too tender. Did inject the finger with bupivacaine in a ring block essentially. Managed to relocate the finger without notable difficulty. Flexes and extends without difficulty although when extension does continue to partially dislocate/sublux at the PIP joint. With this reduced I did try to to remove her ring but this is not going to be possible with enough swelling in the area. Decided to cut off her ring. Done with ring cutter without difficulty. No trauma beyond skin indent to the finger is noted Anticipating follow-up I did speak to Orthopedics on-call. They would like postreduction films as well. Did this and appears to be located by my independent read. Radiology over-read also noting some possible minimal residual subluxation versus underlying extension deformity. I did place a dorsal finger splint over the left 4th finger extending onto the hand. This appears to be well tolerated and stabilizing. See patient discharge plan for further discussion Please wear this splint for stability until further recommendations from Orthopedics. Can certainly remove it to carefully clean up if needed. Anticipate a call from orthopedics by noon on Wednesday. If you do not hear from them please feel free to call [phone]. Medical Records Medical records reviewed: Yes I reviewed the patient's medical records Discharge Plan Discharge Clinical Impression: Dislocated finger, Closed head injury Patient Disposition: Home w/ Parent or Adult Condition: Improved Additional Instructions: Please wear this splint for stability until further recommendations from Orthopedics. Can certainly remove it to carefully clean up if needed. Anticipate a call from orthopedics by noon on Wednesday. If you do not hear from them please feel free to call [phone]. Prescriptions: No Action ibuprofen 200 mg tablet 200 mg PO Q6H PRN naproxen sodium [Aleve] 220 mg tablet 220 mg PO BID PRN atorvastatin 20 mg tablet 20 mg PO DAILY calcium carbonate [Calcium 600] 600 mg calcium (1,500 mg) tablet 1,500 mg PO BID glucosamine-chondroitin 900 mg tablet PO BID turmeric 400 mg capsule PO multivitamin [Multiple Vitamins] Tablet 1 tab PO QDAY diphenhydramine HCl [Benadryl] 25 mg capsule 25 mg PO QHS PRN melatonin 5 mg capsule 5 mg PO HS Allergy Relief (loratadine) 10 mg capsule 10 mg PO DAILY Follow Up/Referrals: CELSA GORE DO [Primary Care Provider, Family Practice] [facility] Info Instructions
--- NOTE | 2024-10-20 15:50 | CRLHL7_ITS ---
For Patients: As a result of the Cures Act, medical imaging exams and procedure reports are released immediately into your electronic medical record. You may view this report before your referring provider. If you have questions, please contact your health care provider. INDICATION: Dislocation TECHNIQUE: Three views of the left ring finger COMPARISON: None FINDINGS: Dorsal dislocation of the middle phalanx with respect to the proximal phalanx. No fracture or other abnormality. IMPRESSION: Left ring finger PIP joint dislocation Dictated by Vernon Norwood MD @ 10/20/2024 4:31:11 PM (Electronically Signed)
--- OUTSIDE RECORDS SUMMARY | 2024-10-20 16:00 | XMS_ITS | Clinical Summary ---
Author Organization [facility] Address [address] [place] [id number] Care Team Providers Care Senior Planner Name Role Phone Melina Ambrose Primary Care Provider [phone] Allergies No known active allergies Medications multivitamin (MVI) tablet Take 1 tablet by mouth once daily. 0 08/14/19 11 Active ibuprofen (ADVIL; MOTRIN) 200 mg tablet Take 2 tablets by mouth 4 times daily if needed. 0 07/07/19 18 Active naproxen (ALEVE) 220 mg tablet Take 1 tablet by mouth 2 times daily with meals. 0 07/07/19 18 Active diphenhydrAMINE (BENADRYL) 25 mg capsule Active loratadine (Allergy Relief, loratadine,) 10 mg tablet Active melatonin 5 mg tab tablet Active calcium carbonate/vitamin D2 (CALCIUM 600 + D ORAL) 08/16/19 22 Active turmeric 400 mg cap Take 400 mg by mouth one time. Active glucosam-chondroit in-diet cb25 116-100 mg cap Take by mouth two times daily. Active atorvastatin 20 mg tabletIndications: Hyperlipidemia, unspecified hyperlipidemia type TAKE 1 TABLET(20 MG) BY MOUTH AT BEDTIME 90 Tablet 3 09/26/19 25 Active atorvastatin (LIPITOR) 20 mg tabletIndications: Hyperlipidemia, unspecified hyperlipidemia type TAKE 1 TABLET(20 MG) BY MOUTH AT BEDTIME 60 Tablet 07/24/19 25 025 Discontinued Active Problems Problem Noted Date Diagnosed Date Tear of medial meniscus of right knee 09/15/2024 Osteoarthritis of right knee 09/15/2024 Osteoarthritis of left knee 09/15/2024 Fracture of wrist 09/15/2024 Fracture of nasal bone 09/15/2024 Chronic pain of both knees 09/10/2023 Hyperlipidemia [...] Encounters Date Type Department Care Team Description 10/13/2024 2:05 PM CDT Office Visit [facility] [address] [place] [address] Melina Ambrose, Preoperative Exam (10/31/2024 - RIGHT total knee - Dr. Raphael - [facility] ) 10/13/2024 1:40 PM CDT Ancillary Procedure [facility] [address] [place] [address] 10/13/2024 Orders Only [facility] [address] [place] [address] Melina Ambrose DO 1 scan: (1-Ord) NFLD-EKG-10/13/24 10/13/2024 Travel 09/23/[address] [address] Melina Ambrose DO Refill Request (Atorvastatin) 09/21/2024 2:30 PM CDT Office Visit [address] [address] Ben Parish, AuD Hearing Problem 09/21/2024 Travel 09/15/2024 3:15 PM CDT Ancillary Procedure [address] [address] 09/15/2024 2:05 PM CDT Office Visit [address] [address] Melina Ambrose DO Medicare ANNUAL (subsequent) Visit (69 year old ); Arthritis (Wrist - broke RIGHT side - had surgery - wonders about arthritis or needing PT); Sleep Problem (Had previous referral for Dr. Sahu but never did - is interesting in meeting with him again ) 09/14/2024 Travel 08/16/2024 1:00 PM CDT Office Visit [address] [address] Brendon Lanier MD Musculoskeletal Problem (Left shoulder pain per primary physician Dr. Ambrose/Right knee surgery scheduled for this October 2024) 08/15/2024 Travel 07/23/[address] [address] Melina Ambrose DO Refill Request (Atorvastatin) 07/22/[address] [address] Melina Ambrose DO Refill Request (Atorvastatin) from Last 3 Months Immunizations Immunization Administration Dates Next Due AMB Influenza, IIV4 [...] (H1N1), Inactiva patria (Age >=3 Years) 07/04/2009 Influenza Virus, Unspecified 07/04/2009 Influenza, High-dose Inactivated 03/07/2024 Influenza, High-dose Quadriv alent Inactivated 02/11/2023,01/21/2022,03/12/2021,02/06,06/02/2013,07/13/2011,07/04/2009 ,04/04/2007 Influenza, IIV3 (Age >=3 years) 06/02/19 14,07/13/2011,07/04/2009,04/04 Influenza, Inactivated AIIV4 (Age 65+ Years) Preserv Free 01/21/2022 Pneumococcal Conj 20-valent (Prevnar 20) 07/31/2022 Pneumococcal Poly,23-Valent (Pneumovax) 07/28/2021 RSV, Recombinant ADJ Reconst ituted (Arexvy 120MCG/0.5mL) 06/01/2023 Td (Age >=7 Years) 02/12/1997 Tdap 08/19/2021,07/04/2009 Zoster (Shingrix-RZV, recombinant) 12/08/2021, Family History Medical History Relation Name Comments Heart attack Daughter IA and stent ag e 41 Heart Disease Father at ag e 54 of IA Cancer-breast Maternal Aunt 2 aunts Cancer Mother 2007 malignant melan joshua Cancer-breast Mother 2006 non-genetic fo rm of breast cancer Cancer-breast Other maternal Cousin Diabetes Paternal Grandfather Relation Name Status Comments Daughter Alive Father age 54/IA Maternal Aunt Mother 2006 Alive Other maternal Cousin Alive Paternal Grandfather Social History Tobacco Use Types Packs/Day Years Used Date Smoking Tobacco: Never Passive Smoke Exposure: Never Smokeless Tobacco: Never Tobacco Cessation:Counseling Given: Yes Alcohol Use Standard Drinks/Week Comments Yes 0 (1 standard drink = 0.6 oz pur e alcohol) one daily PHQ-2 Answer Date Recorded PHQ-2 TOTAL SCORE 0 09/15/2024 Social Connections Answer Date Recorded Do you often feel lonely or isolated from those around you? 0 09/15/2024 Financial Resource Strain Answer Date R ecorded Difficulty of Paying Living Expenses 3 09/15/2024 Difficulty of Paying Living Expenses Not on file 09/15/2024 Food Insecurity Answer Date Recorded Do you worry your food will run out before you are able to buy more? 1 09/15/2024 Transportation Needs Answer Date Record ed Does lack of transportation keep you from medica l appointments? 1 09/15/2024 Does lack of transportation keep you from work, meetings or getting things that you need? 1 09/15/2024 Housing Stability Answer Date Recorded What is your housing situation today? 1 09/15/2024 Utilities Answer Date Recorded Do you have trouble paying f or utilities (for example, heat, electricity, water, phone)? 1 09/15/2024 Comments No Sex and Gender Information Value Date Recorded Sex Assigned at Not on file Legal Sex Female 5:41 AM FURNACE ROASTER Gender Identity Not on file Sexual Orientation Not on file Obstetrics History Last Filed Vital Signs Vital Sign Reading Time Taken Comments Blood Pressure 135/79 10/13/2024 2:06 PM CDT Pulse 84 10/13/2024 2:06 PM CDT Temperature 37.2 C (99 F) 08/16/2024 1:07 PM CDT Respiratory Rate 18 01/18/2015 5:21 PM CDT Oxygen Saturation 98% 10/13/2024 2:06 PM CDT Inhaled Oxygen Concentration - - Weight 71.4 kg (157 lb 8 oz) 10/13/2024 2:06 PM CDT Height 152.9 cm (5' 0.2) 09/15/2024 2:15 PM CDT Body Mass Index 30.56 09/15/2024 2:15 PM CDT Plan of Treatment Health Maintenance Due Date Last Done Comments Hepatitis B series for 19+ ( 3 of 3 - 19+ 3-dose series) 11/26/2004 10/01/2004, 02/07/1997 COVID-19 vaccine series (2023- season) 2024 02/17/2024, 09/10/2023, 02/17/2023, Additional history exists BMI (ht and wt on same day) for age 18+ 09/15/2025 09/15/2024, 09/10/2023, 07/31/2022, Additional history exists Medicare Wellness for age 65+ 09/16/2025, 09/10/2023, 07/31/2022, Additional history exists Depression screening for age 12+ 10/13/2025 10/13/2024, 09/15/2024, 09/10/2023, Additional history exists Mammogram for age 45-75 10/13/2025 10/14/19 25, 10/13/2023, 09/08/2022, Additional history exists Lipids for age 45-75 09/15/2029 09/15/2024, 09/10/2023, 07/31/2022, Additional history exists Tetanus booster 08/20/2031 08/19/2021, 06/17, 02/12/1997 Colonoscopy through age 75 10/01/203109/30, 09/30/2021, 09/30/2021, Additional history exists Hepatitis C screening for ag e 18-79 Completed 07/28/2021 Tdap Completed 08/19/2021, 07/04/2009 Zoster (shingles) series for age 50+ Completed 12/08/2021, 08/26/2021 Pneumococcal series for age 50+ Completed , 07/28/2021 RSV vaccine for adults or Completed 06/01/2023 Influenza Vaccine Completed 03/07/2024, , 02/07/2020, Additional history exists DEXA/DXA scan for age 65+ Completed 06/13/2024, Procedures Procedure Name Priority Date/Time Associated Diagnosis Comments EKG 12 LEAD Routine 10/13/2024 4:22 PM CDT Pre-op evaluation CA READING EKG - NO CHARGE, COMP ONLY Routine 10/13/2024 4:21 PM CDT Pre-op evaluation HEMOGLOBIN Routine 10/13/2024 2:55 PM CDT Pre-op evaluation XR MAMMO BILAT SCREENING Routine 10/13/2024 1:59 PM CDT Visit for screening mammogram XR WRIST 3 VIEWS RIGHT Routine 09/15/2024 3:31 PM CDT Closed fracture of right wrist, initial encounter LIPID PANEL W REFLEX MEASURED LDL Routine 09/15/2024 3:20 PM CDT Hyperlipidemia, unspecified hyperlipidemia type BASIC METABOLIC PANEL Routine 09/15/2024 3:20 PM CDT Hyperlipidemia, unspecified hyperlipidemia type ALT (SGPT) Routine 09/15/2024 3:20 PM CDT Hyperlipidemia, unspecified hyperlipidemia type XR DXA BONE DENSITY 2 SITES AXIAL Routine 06/13/2024 11:57 AM FURNACE ROASTER Postmenopausal COLONOSCOPY SCREENING Routine 09/30/2021 12:57 PM CDT History of colon polyps ANTI HCV Routine 07/28/2021 4:17 PM CDT Need for hepatitis C screening test from Last 3 Months or Most Recently Relevant to Health Maintenance Results * EKG 12 LEAD (10/13/2024 4:22 PM CDT) us Melina Ambrose DO EKG ORD Final Result * CA READING EKG - NO CHARGE, COMP ONLY (10/13/2024 4:21 PM CDT) us Adei Shaqra DO PB - PROVIDER READINGS Final Res ult * HEMOGLOBIN (10/13/2024 2:55 PM CDT) HEMOGLOBIN 13.8 11.7 - 15.5 g/dL [facility] Blood BLOOD SPECIMEN / Unknown 10/13/2024 2:55 PM CDT 10/13/2024 2:56 PM CDT Melina Ambrose DO HEMATOLOGY Final Result [facility] [address] [place] [address], [facility] [address] [place] [address] * XR MAMMO BILAT SCREENING [[id number]] (10/13/2024 1:59 PM CDT) Anatomical Region Laterality Modality BREASTS, Breast Left, Breast Right Bilateral Mammography Impressions 10/13/2024 3:34 PM CDT There is no radiographic evidence for malignancy. Recommend annual mammograms. MAMMOGRAM ASSESSMENT: ACR 1 Negative PATIENTS: You will also receive a letter with your examination results in an easy to read format. If you have questions about your results, please contact your referring provider. Narrative 10/13/2024 3:34 PM CDT For Patients: As a result of the Century Cures Act, medical imaging exams and procedure reports are released immediately into your electronic medical record. You may view this report before your referring provider. If you have questions, please contact your health care provider. XR MAMMO BILAT SCREENING [[id number]] CLINICAL HISTORY: This is an asymptomatic 69 y.o. patient. INDICATION FOR EXAM: Mammogram Screening. TECHNIQUE: CC and MLO views were obtained. This study was evaluated with the assistance of Computer-Aided Detection. COMPARISON FILM: Yes 10/13/23 [facility] 09/08/22 [facility] FINDINGS: The breasts are heterogeneously dense, which may obscure small masses. There are no dominant masses, suspicious micro calcifications or areas of architectural distortion. [facility] Russellqra DO MAMMO Final Result * XR WRIST 3 OR MORE VIEWS RIGHT (09/15/2024 3:31 PM CDT) Anatomical Region Laterality Modality WRISTS, WRIST R Computed Radiogr aphy 09/18/2024 2:21 PM CDT Narrative 09/18/2024 2:21 PM CDT For Patients: As a result of the Cures Act, medical imaging exams and procedure reports are released immediately into your electronic medical record. You may view this report before your referring provider. If you have questions, please contact your health care provider. Indication: Injury, pain Technique: views Comparison: None Findings: Mild degenerative changes are present. There is no fracture. The alignment is normal. No erosions. Impression: No sign of acute fracture. Dictated by Ney Ozuna MD @ 09/18/2024 2:21:33 PM (Electronically Signed) Procedure Note Ney Ozuna MD - 09/18/2024 For Patients: As a result of the s Act, medical imagingexams and procedure reports are released immediately into your electronicmedical record. You may view this report before your referring provider.If you have questions, please contact your health care provider. Indication: Injury, pain Technique: views Comparison: None Findings: Mild degenerative changes are present. There is no fracture. The alignmentis normal. No erosions. Impression: No sign of acute fracture. Dictated by Ney Ozuna MD @ 09/18/2024 2:21:33 PM (Electronically Signed) Melina Russellq DO GENERAL IMAGING Final Result * LIPID PANEL W REFLEX MEASURED LDL (09/15/2024 3:20 PM CDT) CHOLESTEROL, TOTAL 196 <200 mg/dL [facility] HDL CHOLESTEROL 83 > OR = 50 mg/dL [facility] TRIGLYCERIDES 121 <150 mg/dL [facility] LDL-CHOLESTEROL 91 mg/dL (calc) [facility] Comment: Reference range: <100 Desirable range <100 mg/dL for primary prevention; <70 mg/dL for patients with CHD or diabetic patients with > or = 2 CHD risk factors. LDL-C is now calculated using the Jody calculation, which is a validated novel method providing better accuracy than the Friedewald equation in the estimation of LDL-C. Sumanth SAPP et al. CHRIS. 2013;310(19): 2316-0812 (http://education.Brandtone/faq/GKB761) CHOL/HDLC RATIO 2.4 <5.0 (calc) [facility] NON HDL CHOLESTEROL 113 <130 mg/dL (calc) [facility] Comment: For patients with diabetes plus 1 major ASCVD risk factor, treating to a non-HDL-C goal of <100 mg/dL (LDL-C of <70 mg/dL) is considered a therapeutic option. Blood BLOOD SPECIMEN / Unknown 09/15/2024 3:20 PM CDT 09/15/2024 3:20 PM CDT Adei OPHTHONIXq DO CHEMISTRY Final Result Performing Organization Address City/[facility]/ZIP Co de Phone Number [facility] [address] [address], [place] [phone] [facility] [address] [place] [address] * (ABNORMAL) ALT (SGPT) (09/15/2024 3:20 PM CDT) ALT 33(H) 6 - 29 U/L [facility] Blood BLOOD SPECIMEN / Unknown 09/15/2024 3:20 PM CDT 09/15/2024 3:20 PM CDT Melina Wellsq DO CHEMISTRY Final Result [facility] [address] [place] [address], [place] [phone] [facility] [address] [place] [address] * (ABNORMAL) BASIC METABOLIC PANEL (09/15/2024 3:20 PM CDT) GLUCOSE 92 65 - 99 mg/dL [facility] Comment: Fasting reference interval UREA NITROGEN (BUN) 19 7 - 25 mg/dL [facility] CREATININE 0.74 0.60 - 1.00 mg/dL [facility] EGFR 87 > OR = 60 mL/min/1. 73m2 [facility] BUN/CREATININE RATIO SEE NOTE: 6 - 22 (calc) [facility] Comment: Not Reported: BUN and Creatinine are within reference range. SODIUM 140 135 - 146 mmol/L [facility] POTASSIUM 5.2 3.5 - 5.3 mmol/L [facility] CHLORIDE 104 98 - 110 mmol/L [facility] CARBON DIOXIDE 24 20 - 32 mmol/L [facility] ELECTROLYTE BALANCE 12 7 - 17 mmol/L (calc) [facility] CALCIUM 10.6(H) 8.6 - 10.4 mg/dL [facility] Blood BLOOD SPECIMEN / Unknown 09/15/2024 3:20 PM CDT 09/15/2024 3:20 PM CDT us Melina Ambrose DO CHEMISTRY Final Result [facility] [address] [place] [address], [facility] [address] [place] [address] * (ABNORMAL) XR DXA BONE DENSITY 2 SITES AXIAL (06/13/2024 11:57 AM FURNACE ROASTER) Anatomical Region Laterality Modality Spine, HIPS, HIPL, HIPR Other Impressions 06/20/2024 1:30 PM FURNACE ROASTER Osteopenia RECOMMENDATIONS: The National Osteoporosis Foundation recommends [...] to assess therapeutic efficacy. Ivett Gauthier PA-C [facility] 06/20/2024 Narrative 06/20/2024 1:30 PM FURNACE ROASTER For Patients: Results are automatically released to your [facility] ([facility] [employer]) account once available, in compliance with federal regulations. This means that you may see your results before your provider has had a chance to review them. Please allow 2-3 business days for your provider to comment on the results. XR DXA Bone Mineral Density (BMD) EXAM LOCATION: [address] [address] PATIENT NAME: Ava West DATE OF : 1955 EXAM DATE: [...] two scanners are made by the same stand grinder. PROCEDURE: Dual-energy x-ray absorptiometry performed with routine [...] 13.8%. 10-year probability of hip fracture: 3.3%. us Lit Cheek MD DEXA Final Result * COLONOSCOPY (09/30/2021 1:22 PM CDT) 09/30/2021 [...] adequate candidate for conscious sedation. The [id number] was passed through the anus and advanced [...] 1:22 PM Procedure Code(s): --- Professional --- 72275, Colonoscopy, flexible; diagnostic, including collection of specimen(s) bybrushing or washing, when performed (separateprocedure) Diagnosis Code(s): --- Professional --- Z86.010, Personal history of colonicpolyps CPT copyright 2020 [employer]. All rights reserved. The codes documented in this report are preliminary and upon district medical examiner reviewmay be revised to meet current compliance requirements. Scope In: 1:26:24 PM Scope Withdrawal Time 0 hours 7 minutes 49 seconds Scope Out: 1:41:19 PM us Sumanth Sky MD PROCEDURE ORD Final Res ult * ANTI HCV (07/28/2021 4:17 PM CDT) HEPATITIS C ANTIBODY Non-React agustín Non-React agustín 07/29/2021 5:57 PM CDT [facility] Comment:Antibodies to HCV no t detected; does not exclude the possibility of exposure to HCV. Blood BLOOD SPECIMEN / Unknown Venipuncture / Unknown 07/28/2021 4:17 PM CDT 07/28/2021 4:18 PM CDT us Lit Cheek MD SEND OUTS Final Result [facility] [address] [place] [address], [place] from Last 3 Months or Most Recently Relevant to Health Maintenance Insurance MEDICARE PB ONLY [place] [id number] MEDICARE PART A HB ONLY Care Teams Senior Planner Relationship Specialty Start Date End Date Melina Ambrose DO [address] [facility] [place] [address] PCP - General Family Practice 06/08/24
--- NOTE | 2024-10-20 17:39 | CRLHL7_ITS ---
For Patients: As a result of the Century Cures Act, medical imaging exams and procedure reports are released immediately into your electronic medical record. You may view this report before your referring provider. If you have questions, please contact your health care provider. Indication: Left 4th digit dislocation status post reduction. Technique: Two views of the left hand 4th digit. Comparison: Left 4th digit radiographs 10/20/2024. Findings/Impression: Improved alignment of the 4th PIP joint status post reduction, now with questionable minimal residual subluxation versus underlying fixed extension deformity. Clinical correlation recommended. No acute fracture, dislocation, or suspicious osseous lesion. There is soft tissue swelling of the 4th digit. Dictated by José Miguel Trevino MD @ 10/20/2024 6:07:01 PM (Electronically Signed)
[2024-10-20] MEDS: BUPIVACAINE 0.25% 30 ML 10 ML INJECTION (18:23)
== END 2024-10-20 18:15 | disposition home or self-care (01) ==
PROVIDERS: Emergency Provider Family Medicine; PCP Student in an Organized Health Care Education/Training Program
DX: S63.255A Unspecified dislocation of left ring finger, initial encounter (principal); S09.90XA Unspecified injury of head, initial encounter; W01.10XA Fall on same level from slipping, tripping and stumbling with subsequent striking against unspecified object, initial encounter
CPT/HCPCS: 26770; 73140; 99283; 99284; J0665

== ENCOUNTER 2024-10-31 06:01 | Day surgery (SDC) | payer MEDICARE, OTHER, SELFPAY ==
[2024-10-31] VITALS (21 sets, daily range): BP systolic 109–180; BP diastolic 62–95; PULSE 70–89; RESP 13–18; TEMP 35.8–36.7; O2SAT 93–100; BMI 30.7
[2024-10-31] MEDS: OXYCODONE (CR) 10 MG TAB.ER.12H PO (06:30)
[2024-10-31] MEDS: ACETAMINOPHEN 500 MG TABLET 1000 MG PO ×3 (06:30→19:46)
[2024-10-31] MEDS: CELECOXIB 200 MG CAPSULE PO ×2 (06:30→21:15)
[2024-10-31] MEDS: SODIUM CHLORIDE 0.9 % (FLUSH) 10 ML SYRINGE IVF ×2 (06:50→21:16)
[2024-10-31] MEDS: LACTATED RINGERS 1000 ML 1,000 ML 100 ML IV ×2 (06:50→09:00)
[2024-10-31] MEDS: fentaNYL 100 MCG/2 ML inj IVP (07:11)
[2024-10-31] MEDS: MIDAZOLAM HCL 1 MG/ML inj IVP (07:11)
--- NOTE | 2024-10-31 07:16 | SUR.PREOP ---
TIME?OUT:?0710 PT/RN/MDA?VERIFICATION?OF?SURGICAL?SITE,?PROCEDURE,?AND?CONSENT OBTAINED?PRIOR?TO?INVASIVE?PROCEDURE.
--- NOTE | 2024-10-31 07:19 | W.PM.NB ---
Nerve Block Nerve Block Time Seen by Provider: 07:12 Date Seen: 10/31/24 Type of block requested by surgeon for post-operative analgesia: adductor canal Side: right Time out performed: Yes Verification of patient name: Yes Verification of date of : Yes Site marking: site marked Name of person performing procedure: Doug Continuous monitoring Was continuous monitoring of O2 sat, B/P, vehicle monitor technician, recorded every 15 minutes?: Yes Procedure Checklist: sterile prep, needles and gloves Ultrasound guided. Images saved: Yes Medications given in 5ml increments after negative aspiration: Marcaine %: 0.25 mL: 15 Needle gauge: 20 Precedex (mcg): 25 Patient tolerated procedure well: Yes Block Charges Block Charge (with Pro Fee): Femoral Nerve Use of Ultrasound Machine for Block: Yes- US Guidance/pain block
--- NOTE | 2024-10-31 07:19 | W.PM.NB ---
Nerve Block Nerve Block Time Seen by Provider: 07:12 Date Seen: 10/31/24 Type of block requested by surgeon for post-operative analgesia: geniculars Side: right Time out performed: Yes Verification of patient name: Yes Verification of date of : Yes Site marking: site marked Name of person performing procedure: Doug Continuous monitoring Was continuous monitoring of O2 sat, B/P, director non profit, recorded every 15 minutes?: Yes Procedure Checklist: sterile prep, needles and gloves Ultrasound guided. Images saved: Yes Medications given in 5ml increments after negative aspiration: Marcaine %: 0.25 mL: 9 Needle gauge: 25 Patient tolerated procedure well: Yes Block Charges Block Charge (with Pro Fee): Genicular Nerve Block
--- NOTE | 2024-10-31 07:22 | P.ANES_ITS ---
Anesthesia Charges Start Date/Time Anesthesia Start Date: 10/31/24 Anesthesia Start Time: 07:15 Stop Date/Time Anesthesia Stop Date: 10/31/24 Anesthesia Stop Time: 09:23 Summary Extremes of Age - Over 70 or under 1: MDA Coding CPT Codes CPT Codes: ANESTH KNEE ARTHROPLASTY - 42468 ([id number]) P2 - PATIENT W/MILD SYST DISEASE, QK - PARTS ORDER AND STOCK CLERK 2-4 CNCRNT ANES PROC, QX - PRINCIPAL QUALITY ENGINEER SVC W/ MD MED DIRECTION Additional Codes: Summary - Extremes of Age - Over 70 or under 1: MDA ([id number])
--- NOTE | 2024-10-31 07:22 | W.ANESCHARGE ---
Anesthesia Charges Start Date/Time Anesthesia Start Date: 10/31/24 Anesthesia Start Time: 07:15 Stop Date/Time Anesthesia Stop Date: 10/31/24 Anesthesia Stop Time: 09:23 Summary Extremes of Age - Over 70 or under 1: MDA Coding CPT Codes CPT Codes: ANESTH KNEE ARTHROPLASTY - 55794 ([id number]) P2 - PATIENT W/MILD SYST DISEASE, QK - BULWARK CARPENTER 2-4 CNCRNT ANES PROC, QX - LOGISTICS COORDINATOR SVC W/ MD MED DIRECTION Additional Codes: Summary - Extremes of Age - Over 70 or under 1: MDA ([id number])
[2024-10-31] MEDS: CEFAZOLIN 1 GM inj IVP (07:29)
[2024-10-31] MEDS: TRANEXAMIC ACID 100 MG/ML INJ 1000 MG IV (07:29)
--- NOTE | 2024-10-31 08:29 | CRLHL7_ITS ---
For Patients: As a result of the Century Cures Act, medical imaging exams and procedure reports are released immediately into your electronic medical record. You may view this report before your referring provider. If you have questions, please contact your health care provider. Indication: Postop total knee arthroplasty Technique: Two views right knee Comparison: 07/10/2024 Findings/Impression: Interval right total knee replacement which maintains near anatomic alignment. No evidence of fracture surrounding the hardware. Subcutaneous and intra-articular air consistent with recent surgery. Dictated by Jhon Garcia MD @ 10/31/2024 10:19:15 AM (Electronically Signed)
--- NOTE | 2024-10-31 08:30 | P.ORPRC_ITS ---
Procedure Note Date of procedure: 10/31/24 Procedure: PREOPERATIVE DIAGNOSIS: Right knee osteoarthritis POSTOPERATIVE DIAGNOSIS: Right knee osteoarthritis NAME OF OPERATION: Right total knee arthroplasty SURGEON: Luca Raphael MD CIGAR BANDER HAND: Linda Belle PA-C ANESTHESIA: Spinal ESTIMATED BLOOD LOSS: 0 mL COMPLICATIONS: None SPECIMENS: None DRAINS: None PREOPERATIVE ANTIBIOTICS: Ancef 1 g IMPLANTS: 1. J&J Attune #4 posterior stabilized femur 2. #3 fixed-bearing tibia 3. #4 posterior stabilized, 5 mm fixed-bearing polyethylene 4. 35 patella INDICATIONS: The patient is a 69-year-old with a longstanding history of severe, unrelenting right knee pain secondary to end-stage (grade IV) right knee osteoarthritis. Despite appropriate nonoperative management, including activity modification, anti-inflammatories, [id number] pain medication, bracing, p hysical therapy, and injections they continue to have pain and disability. Operative intervention was offered. The risks, benefits and expected outcomes were discussed in detail. These included but were not limited to: Infection, bleeding, injury to blood vessel or nerve, venous thromboembolism. All questions were answered to their satisfaction. Use of an assistant district attorney was necessary throughout the case for patient positioning and safety, soft tissue retraction, and closure. PROCEDURE: Spinal anesthesia was administered. The patient was placed supine on the operating table. The assistant district attorney made sure the patient was positioned appropriately. The lower extremity was prepped and draped in the usual sterile fashion. The limb was exsanguinated with the Usmanth bandage. The pneumatic tourniquet was inflated to 300 mmHg. A standard anterior incision was made with the knee in flexion. Subcutaneous dissection was sharply taken through fascial layer #1. Full-thickness medial and lateral flaps were elevated. The assistant district attorney retracted the soft tissues and protected them throughout the case. A standard subvastus approach was made. The patella was subluxed. The infrapatellar fat pad was debrided. The menisci and cruciate ligaments were sharply d?brided. Marginal osteophytes were d?brided with the rongeur. The drill was used to penetrate the femoral canal. The canal was aspirated and irrigated with pulse lavage. The intramedullary femoral guide was placed for a 5-degree valgus cut, removing 10 mm off the distal femur. The saw was used to make the cut. Whitesides line and the trans epicondylar axis were marked. The femoral sizing guide was pinned onto the distal femur. Three degrees of external rotation nicely parallels the transepicondylar axis. Pins were placed for posterior referencing. The four-in-one cutting guide was pinned onto the distal femur. The anterior, posterior, and chamfer cuts were made. The assistant district attorney protected the collateral ligaments. The box cutting guide was pinned. The box cuts were made. The boxed trial was placed and was an excellent fit. Drill holes for the lugs were made. Attention was then turned to the proximal tibia. The extramedullary tibial guide was placed for a neutral varus/valgus cut with 5 degrees of posterior slope, removing 0 mm based off the medial tibial surface. The assistant district attorney protected the collateral ligaments and the neurovascular bundle. The saw was used to make the cut. Trial components were placed. The knee was nicely balanced in both flexion and extension. The trial components were removed. The tray was placed in appropriate rotation, parallel to our tibial cutting pins. It was pinned by the assistant district attorney and the drill and the punch were used. The tray was removed. The punch was used again. We placed a bone plug in the femoral canal. Attention was then turned to the patella. [place] patellar thickness was 21 mm. The lobster claw resection guide was used with the 7.5 mm alejandro. The saw was used to make the cut. Drill holes were made by the assistant district attorney. The trial was placed and was an excellent fit. Cancellous surfaces were irrigated with pulse lavage and thoroughly dried by the assistant district attorney. We cemented the tibial component, then the femoral component. We impacted the 5 mm polyethylene onto the tibial tray. The knee was brought into full extension. We then cemented the patellar component. Excessive cement was removed. The cement was allowed to harden. The knee was taken through a range of motion and was found to be nicely balanced in both flexion and extension. The patella tracks centrally. The assistant district attorney did a three minute dilute Betadine solution soak. The assistant district attorney irrigated the wound with 3 liters of normal saline via pulse lavage. The assistant district attorney reapproximated the extensor mechanism with #1 Vicryl in an interrupted [id number] fashion. The assistant district attorney then ran the extensor mechanism with a #1 PDO Stratafix. The assistant district attorney closed the subcutaneous tissues with a 3-0 Stratafix and the skin with a running 3-0 Stratafix in a subcuticular fashion. Glue was used to seal the skin. The assistant district attorney placed a dry dressing. Sponge and needle counts were correct x2. The patient tolerated the procedure well. There were no apparent complications. They were carefully transferred to the hospital bed and taken to the postanesthesia care unit in satisfactory condition. PLAN: The patient will be mobilized with physical therapy. Aspirin will be used for DVT prophylaxis. They will be discharged to home once medically appropriate.
--- NOTE | 2024-10-31 09:23 | P.ANES_ITS ---
Anesthesia Charges Start Date/Time Anesthesia Start Date: 10/31/24 Anesthesia Start Time: 07:15 Stop Date/Time Anesthesia Stop Date: 10/31/24 Anesthesia Stop Time: 09:23 Coding CPT Codes CPT Codes: ANESTH KNEE ARTHROPLASTY - 52257 ([id number]) P2 - PATIENT W/MILD SYST DISEASE, QX - BIAZZI NITRATOR OPERATOR SVC W/ MD MED DIRECTION, QK - SHIP CLEANER 2-4 CNCRNT ANES PROC
--- NOTE | 2024-10-31 09:23 | W.ANESCHARGE ---
Anesthesia Charges Start Date/Time Anesthesia Start Date: 10/31/24 Anesthesia Start Time: 07:15 Stop Date/Time Anesthesia Stop Date: 10/31/24 Anesthesia Stop Time: 09:23 Coding CPT Codes CPT Codes: ANESTH KNEE ARTHROPLASTY - 52287 ([id number]) P2 - PATIENT W/MILD SYST DISEASE, QX - CUT PLUG PACKER SVC W/ MD MED DIRECTION, QK - PRINT AND PATTERN DESIGNER 2-4 CNCRNT ANES PROC
[2024-10-31] MEDS: fentaNYL 100 MCG/2 ML inj 50 MCG IVP (09:38)
--- NOTE | 2024-10-31 09:52 | SUR.OPER ---
PATIENT QUESTIONS ANSWERED SATISFACTORILY PREOPERATIVELY.? PATIENT BROUGHT TO OR #2 PER CART AFTER ADMINISTRATION OF A BLOCK.? Patient positioned supine on OR #2 bed.? The perioperative?team supported arms bilaterally on arm boards.? Final approval of positioning by surgeon.?
[2024-10-31] MEDS: HYDROmorphone 0.5 mg/0.5 ml inj IVP (10:41)
[2024-10-31] MEDS: CEFAZOLIN 2 GM in 0.9 % SODIUM CHLORIDE Mini-bag 100 ML IVPB ×2 (13:58→22:01)
[2024-10-31] MEDS: OXYCODONE 5 MG TABLET PO ×2 (16:23→21:15)
--- NOTE | 2024-10-31 16:30 | PM.IMCN1 ---
Date of Consult Patient: Giorgi Patient Consult date: 10/31/24 Requesting Physician: Orthopedics Primary Care Provider: CELSA AMBROSE DO Consult Narrative Reason for consult: Medical management of comorbidities Narrative: Ava West is a 69 year old female who presented to the hospital today for an elective R TKA with Dr. Raphael of Orthopedic Surgery. There were no surgical or anesthetic complications noted during procedure. Patient's H&P reviewed, PCP is Dr. Celsa Ambrose at [facility]. Past medical history significant for: Hyperlipidemia, intermittently elevated blood pressures without diagnosis of essential hypertension, osteoarthritis. History of blood clots: No Postoperative plan: Home with . Review of Systems Status of ROS: Reports: 10 or more systems reviewed and unremarkable except as noted in History and below [facility] Medical History (Updated 10/27/24 @ 11:06 by Erik Travis RN) Hypertension ?I10 - Essential (primary) hypertension (ICD-10) Vitamin D deficiency ?E55.9 - Vitamin D deficiency, unspecified (ICD-10) Left leg paresthesias ?R20.2 - Paresthesia of skin (ICD-10) Chronic pain of both knees ?M25.561 - Pain in right knee (ICD-10) ?M25.562 - Pain in left knee (ICD-10) ?G89.29 - Other chronic pain (ICD-10) Osteopenia ?M85.80 - Other specified disorders of bone density and structure, unspecified site (ICD-10) Colon polyp ?K63.5 - Polyp of colon (ICD-10) Fracture closed, nasal bone ?S02.2XXA - Fracture of nasal bones, initial encounter for closed fracture (ICD-10) Allergic rhinitis, cause unspecified ?J30.9 - Allergic rhinitis, unspecified (ICD-10) Hyperlipidemia ?E78.5 - Hyperlipidemia, unspecified (ICD-10) History of ectopic ?Z87.59 - Personal history of other complications of , childbirth and the puerperium (ICD-10) Surgical History (Updated 10/31/24 @ 16:33 by Francheska Muñoz MD) Status post right knee replacement ?Z96.651 - Presence of right artificial knee joint (ICD-10) History of arthroplasty of right knee (10/31/24) ?Z96.651 - Presence of right artificial knee joint (ICD-10) H/O wisdom tooth extraction ?K08.409 - Partial loss of teeth, unspecified cause, unspecified class (ICD-10) Previous section ?Z98.891 - History of uterine scar from previous surgery (ICD-10) S/P foot surgery, right (08/19/10) ?Z98.890 - Other specified postprocedural states (ICD-10) Social History What is your current living situation?: I presently have a place to live Problems where you live: no known problems In the past 12 months, utilities in danger of being shut off: no In past 12 months, lack of transportation kept you from medical appts, meetings, work, or getting things needed for daily living: no In the past 12 mos, have been you worried that your food would run out before you had money to buy more?: never true In the past 12 mos, the food you bought just didn't last and you didn't have money to buy more?: never true Highest level of school completed/degree received: Bachelor's degree Smoking Status: Never smoker Do you use any of these nicotine containing products: None Second hand tobacco smoke exposure: No How often do you have a drink containing alcohol: 4 or more times a week Alcohol type: wine How many standard drinks containing alcohol do you have on a typical day: 1 or 2 How often do you have six or more drinks on one occasion: Never AUDIT-C Alcohol total score: 4 Non-prescribed substance use: denies use Caffeine: Yes How often does anyone, including family, friends and others, physically hurt you: never How often does anyone, including family, friends and others, insult or talk down to you: never How often does anyone, including family, friends and others, threaten you with harm: never How often does anyone, including family, friends and others, scream or curse at you: never service: No Meds Home Medications and Allergies Home Medications ?Medication ?Instructions ?Recorded ?Confirmed ?Type atorvastatin 20 mg tablet 20 mg PO HS 06/26/22 10/31/24 History antiarthritic combination no.2 900 900 mg PO BID 09/27/23 10/31/24 History mg tablet (glucosamine-chondroitin) calcium carbonate (Calcium 600) 1,500 mg PO BID 09/27/23 10/31/24 History diphenhydramine HCl 25 mg capsule 25 mg PO HS PRN 09/27/23 10/31/24 History (Benadryl) multivitamin (Multiple Vitamins 1 tab PO DAILY 09/27/23 10/31/24 History tablet) turmeric 400 mg capsule 400 mg PO DAILY 09/27/23 10/31/24 History ibuprofen 200 mg tablet 200 mg PO Q6H PRN 07/10/24 10/31/24 History naproxen sodium 220 mg tablet 220 mg PO BID PRN 07/10/24 10/31/24 History (Aleve) loratadine 10 mg capsule (Allergy 10 mg PO DAILY 07/15/24 10/31/24 History Relief (loratadine)) melatonin 5 mg capsule 5 mg PO HS 07/15/24 10/31/24 History acetaminophen 500 mg capsule 500 - 1,000 mg (1 - 2 x 500 mg) PO 10/31/24 Rx Q6H PRN pain #100 caps aspirin 81 mg chewable tablet 81 mg PO BID for DVT prophylaxis 10/31/24 Rx (Aspirin Childrens) 30 days #60 tabs oxycodone 5 mg tablet 2.5 - 5 mg (0.5 - 1 x 5 mg) PO 10/31/24 Rx Q4-6H PRN Pain #42 tabs sennosides 8.6 mg tablet (Senna 17.2 mg (2 x 8.6 mg) PO BID PRN 10/31/24 Rx Lax) constipation #100 tabs Allergies Allergy/AdvReac Type Severity Reaction Status Date / Time No Known Drug Allergies Allergy Verified 10/31/24 06:12 Exam Narrative: Exam Narrative: GEN: Alert and oriented, has already completed PT when I see her postoperatively HEENT: EOMIs bilaterally, no scleral icterus CV: RRR, No concerning murmurs, rubs, or gallops R: LCTA bilaterally without concerning wheezing, rales, or rhonchi Skin: No concerning skin lesions or rashes on exposed skin Neuro: Nonfocal Psych: Appropriate Const: Vital Signs, click to edit/add: Vital Signs - 24 hr 10/31/24 06:43 10/31/24 07:11 10/31/24 09:20 Temperature 98.0 F 97.3 F L Pulse Rate 89 89 78 Respiratory Rate 16 16 18 Blood Pressure 180/94 H 157/82 H 116/70 Pulse Oximetry 97 100 95 Oxygen Delivery Me thod Room Air Nasal Cannula Room Air Oxygen Flow Rate 2 10/31/24 09:25 10/31/24 09:30 10/31/24 09:35 Temperature Pulse Rate 84 77 75 Respiratory Rate 16 14 13 Blood Pressure 112/70 118/69 114/72 Pulse Oximetry 95 95 96 Oxygen Delivery Me thod Oxygen Flow Rate 10/31/24 09:40 10/31/24 09:45 10/31/24 09:50 Temperature 96.8 F L Pulse Rate 70 75 74 Respiratory Rate 14 16 14 Blood Pressure 122/67 121/69 112/75 Pulse Oximetry 93 95 98 Oxygen Delivery Me thod Oxygen Flow Rate 10/31/24 10:15 10/31/24 10:15 10/31/24 10:45 Temperature 97.1 F L 96.5 F L Pulse Rate 74 75 73 Respiratory Rate 18 18 18 Blood Pressure 127/81 125/79 126/73 Pulse Oximetry 98 98 98 Oxygen Delivery Me thod Room Air Oxygen Flow Rate 10/31/24 11:00 10/31/24 11:30 10/31/24 12:00 Temperature 96.9 F L 96.8 F L Pulse Rate 75 76 75 Respiratory Rate 18 18 18 Blood Pressure 131/95 H 143/79 H 135/94 H Pulse Oximetry 100 99 98 Oxygen Delivery Me thod Oxygen Flow Rate 10/31/24 12:55 10/31/24 13:00 10/31/24 14:00 Temperature 96.8 F L 97.1 F L Pulse Rate 74 83 84 Respiratory Rate 18 18 18 Blood Pressure 109/66 119/76 116/81 Pulse Oximetry 98 96 95 Oxygen Delivery Me thod Room Air Oxygen Flow Rate Assessment and Plan Assessment and plan (1) Status post right knee replacement: Problem comment: - 10/31/24, Dr. Raphael Status: Acute Plan - pain management and prophylaxis per orthopedic surgery team - continue home medications for comorbidities - anticipate routine postoperative course
--- NOTE | 2024-10-31 18:48 | PC.NURSE ---
End of shift [id number] - Pt arrived from PACU at approximately 1000. Alert, oriented, cooperative and appeared to be drowsy. Reported pain in operative leg as 5-7/10. Given medication per MAR with pt reporting improvement. Up with standby assistance and walker/gait belt. Pt able to eat and drink during shift without n/v and able to void. Dressing CDI, pedal pulse present, ice pack present during shift. Pt appears to be resting in bed comfortably at end of shift with call light within reach.
[2024-10-31] MEDS: SENNOSIDES 1 TAB TABLET 2 TAB PO (21:15)
[2024-10-31] MEDS: ASPIRIN 81 MG TABLET EC PO (21:15)
[2024-11-01] MEDS: OXYCODONE 5 MG TABLET PO ×2 (02:20→08:07)
[2024-11-01] MEDS: ACETAMINOPHEN 500 MG TABLET 1000 MG PO ×2 (02:21→08:12)
[2024-11-01 03:00] VITALS: BP 149/78; PULSE 75; RESP 16; TEMP 36.4; O2SAT 96
[2024-11-01] MEDS: CEFAZOLIN 2 GM in 0.9 % SODIUM CHLORIDE Mini-bag 100 ML IVPB (05:51)
[2024-11-01 06:46] LABS: Hematocrit 37.5 % (33.0-51.0); Hemoglobin* 12.4 gm/dL (12.0-16.0); Immature Granulocytes Pct Auto 0.2 %; Lymphocytes Percent Auto 11.6 % (20-44); Mean Corpuscular HGB Conc 33 gm/dL (32-36); Mean Corpuscular Hemoglobin 31 pg (26-34); Mean Corpuscular Volume 95 fL (80-100); Monocytes Percent Auto 9.3 % (0.0-11.0); Neutrophils Percent Auto 78.9 % (42.0-72.0); Platelet Count* 276 K/uL (140-440); RDW Coefficient of Variation % 12.2 % (11.5-15.5); Red Blood Count 3.95 m/uL (4.00-5.20); White Blood Count* 12.76 K/uL (4.50-11.00)
[2024-11-01 06:49] LABS: Slide Review Reflex No
[2024-11-01 06:53] LABS: Chloride* 103 mmol/L (96-114); Potassium* 3.9 mmol/L (3.6-5.1); Sodium* 133 mmol/L (135-149)
[2024-11-01 06:56] LABS: Anion Gap 5 mEq/L (7-15); Blood Urea Nitrogen* 12 mg/dL (7-30); Calcium* 9.3 mg/dL (8.4-10.6); Carbon Dioxide* 25 mmol/L (20-32); Creatinine* 0.6 mg/dL (0.5-1.5); Estimated Glomerular Filt Rate 97 ml/min; Glucose* 131 mg/dL (60-115)
--- NOTE | 2024-11-01 06:59 | PC.NURSE ---
End of shift report [id number]: VSS. Pt is pleasant and cooperative. Afebrile. Right knee dressing is C/D/I, CMS is intact. Rates pain from a 2-4/10, prn pain meds offered and given with relief. Intermittent ice applied. Ambulates SBA, GB, and Walker. Pt is resting in bed, call light within reach.
[2024-11-01 07:11] LABS: INR 1.09 (0.91-1.10)
[2024-11-01 08:00] VITALS: BP 143/85; PULSE 90; RESP 18; TEMP 36.8; O2SAT 99
--- NOTE | 2024-11-01 08:22 | PM.ORPN ---
Subjective Subjective Time Seen by Provider: 08:22 Date Seen: 11/01/24 Principal diagnosis: Status post right knee replacement Interval history: Ava is comfortable this morning. She will be discharging to home today. Ortho Exam Narrative Exam Narrative: Alert and oriented x3. Patient is in no acute distress. Converses without labored breathing. Hearing is grossly intact. Ambulates with a walker. Examination of the right lower extremity shows the dressing is intact. No erythema or warmth or sign of infection. Calf is soft and nontender. CMS intact right lower extremity. He is able to straight leg raise Const Vital Signs, click to edit/add: Vital Signs - 24 hr 10/31/24 09:20 10/31/24 09:25 10/31/24 09:30 Temperature 97.3 F L Pulse Rate 78 84 77 Pulse Rate [Left Pulse Oximeter] Respiratory Rate 18 16 14 Blood Pressure 116/70 112/70 118/69 Blood Pressure [Left Arm] Pulse Oximetry 95 95 95 Oxygen Delivery Method Room Air 10/31/24 09:35 10/31/24 09:40 10/31/24 09:45 Temperature Pulse Rate 75 70 75 Pulse Rate [Left Pulse Oximeter] Respiratory Rate 13 14 16 Blood Pressure 114/72 122/67 121/69 Blood Pressure [Left Arm] Pulse Oximetry 96 93 95 Oxygen Delivery Method 10/31/24 09:50 10/31/24 10:15 10/31/24 10:15 Temperature 96.8 F L 97.1 F L Pulse Rate 74 74 75 Pulse Rate [Left Pulse Oximeter] Respiratory Rate 14 18 18 Blood Pressure 112/75 127/81 125/79 Blood Pressure [Left Arm] Pulse Oximetry 98 98 98 Oxygen Delivery Method Room Air 10/31/24 10:45 10/31/24 11:00 10/31/24 11:30 Temperature 96.5 F L 96.9 F L Pulse Rate 73 75 76 Pulse Rate [Left Pulse Oximeter] Respiratory Rate 18 18 18 Blood Pressure 126/73 131/95 H 143/79 H Blood Pressure [Left Arm] Pulse Oximetry 98 100 99 Oxygen Delivery Method 10/31/24 12:00 10/31/24 12:55 10/31/24 13:00 Temperature 96.8 F L 96.8 F L Pulse Rate 75 74 83 Pulse Rate [Left Pulse Oximeter] Respiratory Rate 18 18 18 Blood Pressure 135/94 H 109/66 119/76 Blood Pressure [Left Arm] Pulse Oximetry 98 98 96 Oxygen Delivery Method Room Air 10/31/24 14:00 10/31/24 15:00 10/31/24 15:00 Temperature 97.1 F L Pulse Rate 84 75 Pulse Rate [Left Pulse Oximeter] Respiratory Rate 18 18 18 Blood Pressure 116/81 117/62 Blood Pressure [Left Arm] Pulse Oximetry 95 96 96 Oxygen Delivery Method Room Air 10/31/24 16:00 10/31/24 19:00 10/31/24 23:00 Temperature 97.9 F 98.0 F 98.0 F Pulse Rate 79 Pulse Rate [Left Pulse Oximeter] 74 77 Respiratory Rate 18 18 16 Blood Pressure 123/70 Blood Pressure [Left Arm] 136/84 151/87 H Pulse Oximetry 96 95 98 Oxygen Delivery Method Room Air Room Air 10/31/24 23:00 10/31/24 23:00 11/01/24 03:00 Temperature 97.5 F L Pulse Rate Pulse Rate [Left Pulse Oximeter] 75 Respiratory Rate 16 16 16 Blood Pressure Blood Pressure [Left Arm] 149/78 H Pulse Oximetry 98 96 Oxygen Delivery Method Room Air Room Air Assessment and Plan Assessment and plan (1) Status post right knee replacement: Problem details: - 10/31/24, Dr. Raphael Status: Acute Assessment and Plan: Plan for discharge is today to home if they meet discharge criteria. DVT prophylaxis includes aspirin 81 mg twice daily x1 month, Compression stockings as needed for swelling. Frequent ambulation, every hour throughout the day. Remove dressing in 1 week. Observe wound and phone Orthopedics with any questions or concerns Return to clinic in 1 week for a wound check Return to clinic in 6 weeks with surgeon Minimize narcotic use. Wean off and discontinue soon as possible. Activities as tolerated. No strenuous activity. Outpatient physical therapy as scheduled. Ice and elevate the operative extremity. No restriction on ice.
[2024-11-01] MEDS: SENNOSIDES 1 TAB TABLET 2 TAB PO (09:13)
[2024-11-01] MEDS: ASPIRIN 81 MG TABLET EC PO (09:13)
[2024-11-01] MEDS: CELECOXIB 200 MG CAPSULE PO (09:13)
--- NOTE | 2024-11-01 13:07 | PC.NURSE ---
End of Shift: Patient pleasant and cooperative, A&O. VSS, afebrile. SpO2 maintained above 90% on RA. IV removed with tip intact. Tolerating regular diet. Discharge instructions provided, all questions answered. Discharged to home at 1038
== END 2024-11-01 10:38 | disposition home or self-care (01) ==
LOC: OR 06:05 → MEDSURG 09:23
PROVIDERS: Family Medicine; PCP Student in an Organized Health Care Education/Training Program; Visit Provider Orthopaedic Surgery
PROC: (CPT 27447; principal; 2024-10-31 07:15)
DX: M17.11 Unilateral primary osteoarthritis, right knee (principal); G89.18 Other acute postprocedural pain; I10 Essential (primary) hypertension; Z79.82 Long term (current) use of aspirin; M85.80 Other specified disorders of bone density and structure, unspecified site; E55.9 Vitamin D deficiency, unspecified; E78.5 Hyperlipidemia, unspecified
CPT/HCPCS: 27447; 01402; 36415; 64447; 64454; 73560; 76942; 80048; 85025; 85610; 97110; 97116; 97161; 97165; 97530; 97535; 99100; A9270; C1776; J0665; J0690; J1100; J1171; J2250; J2371; J2405; J2704; J3010; J7120

== ENCOUNTER 2024-12-15 13:00 | Outpatient (RCR) | payer MEDICARE, OTHER, SELFPAY ==
--- NOTE | 2024-11-01 15:23 | PC.SOCIAL ---
Pt. is moving well following RTKA and discharged home with spouse support. No healthcare social worker needed for discharge.
--- NOTE | 2024-11-02 13:59 | PT.OPEX ---
PT [facility] Eval Start: 11/01/24 15:44 Freq: Status: Active Protocol: Document 11/02/24 07:18 HLA (Rec: 11/02/24 13:54 HLA [id number]) E-signed By Hoda Tony, PT, DPT Physical Therapy Outpatient Evaluation Insurance Information Recert Due Date 01/30/25 Insurance Name [employer] Medical Diagnosis R TKA-first joint replacement HTN, OA, osteopenia, L LE paresthesia. Treating Diagnosis R knee pain, weakness, difficulty amb after TKA Referring MD Raphael Subjective Preferred Name Ava Subjective Pt reports feeling lightheaded, took oxy 30 min ago. The first evening and morning at the hospital were good , harder once returning at home as pain increased, edema, nerve block wore off. She used ice, elevated. Has been amb with her walker, sleeping in her bed, doing her ex. Pain Comments pain across knee 5-6/10, increases when meds are due, moving in and out of the car. R hip is sore since surgery. Date of Last 11/06/24 Physician Visit Date of Surgery (If 10/30/24 applicable) Current Work Status Retired Precautions Treatment L LE paresthesias Precautions/ Contraindications Weight Bearing Weight Bear as Tolerated Status Therapy Limitations/ Not Limited Systems Review Objective Range of Motion B UES L LE WNL R hip 0-110 flex, abd 0-30, some lat tenderness R knee 8-97 seated AA R ankle full Strength B UES L LE 5/5 R hip 5-/5 R knee 3-/5 R ankle 5-/5 Swelling edema ankle to thigh R LE Palpation tender across knee, surgical bandage in place. Balance & Gait Gt- amb 100 feet x 3 with ww, sba, vc heel toe patterning, posture, hip ext stairs 2 rails step to pattern balance seated good static/dynamic, standing fair with walker Posture rounded shldrs, fwd head Sensation/Reflexes intact to light touch Other/Pertinent Access Code: [email or web address] Objective URL: [email or web address] Date: 11/02/2024 Prepared by: Hoda Tony Exercises - Supine Single Leg Ankle Pumps - 3-5 x daily - 7 x weekly - 10 reps - edema management exercise type - Supine Quad Sets - 3 x daily - 7 x weekly - 2 sets - 10 reps - 5 seconds hold - strength exercise type - Supine Short Arc Quad - 3 x daily - 7 x weekly - 10 reps - 5 seconds hold - strength exercise type - Active Straight Leg Raise with Quad Set - 3 x daily - 7 x weekly - 10 reps - 2-3 seconds hold - strength exercise type - Supine Heel Slide - 3 x daily - 7 x weekly - 10 reps - range of motion exercise type - Supine Isometric Hamstring Set - 3 x daily - 7 x weekly - 10 reps - 5 seconds hold - strength exercise type - Seated Long Arc Quad - 3 x daily - 7 x weekly - 10 reps - 5 seconds hold - range of motion/strength exercise type - Seated Knee Flexion Stretch - 3 x daily - 7 x weekly - 10 reps - 5 seconds hold - range of motion/stretch exercise type - Seated Passive Knee Extension - 3 x daily - 7 x weekly - 1 reps - 5-15 minutes hold - range of motion/ stretch exercise type Patient Education - Safe Practices For Preventing Falls - Going Up and Down Stairs With Two Rails After Surgery - Walker WBAT - Ice Functional Test LEFS 14 Performed & Score Assessment Assessment/ Patient underwent R TKA on 10/30/24. Pain has been 5-6/ Impression 10. She has been doing her ex 'somewhat' at home. Therapist reviewed positioning, use of ice, activity level, bed mobility, transfers, gt with walker, stairs and car transfers today. Performed TKA ex protocol with assist for HS, SLR and LAQ. Patient is able to flex R Knee AA 8-97. Patient ambulated with ww 100 feet x 3 sba, vc hip ext and heel toe gt. Patient presents with edema, pain surgical leg, impaired ROM, impaired strength, impaired transfers and impaired ambulation. PT twice weekly is planned to improve ROM and strength R LE, return to ind amb community distances. Primary Functional impaired ROM, impaired strength, impaired amb, impaired Limitations mobility Plan of Care Rehabilitation Good Potential Physical Therapy Within 10-12 weeks: Goals 1. Pt will have knee AROM 0-120 degrees for transfers, ADLs, and stairs independence. 2. Pt will amb 20 min with se cane or no device as indicated, safely and independently for community and household ambulation. 3. Pt will be independent in home ex program for senior care pain management and to promote independence and to decrease fall risk. 4. Pt will ascend/descend 13 stairs with railing independently for community mobility. Coordination/ Referral Source Communication With Treatment Plan/ Gait Training,Ice/Cold/Vasopneumatic,Joint Mobilization Direct Interventions ,Manual Therapy,Neuromuscular Re-ed,Orthotics/Braces, Self-Care/Home Management,Therapeutic Activities, Therapeutic Exercises Frequency/Duration 2x/week x 10-12 weeks Patient Will Be Completion of LTG(s),Skills Plateau,Independent w/HEP, Discharged From Independently Progressing Therapy Evaluation Billing Untimed Code 12 Treatment Minutes PT Eval No Charge No Complexity Low Certification Information Initial 11/02/24 Certification Date Ending Certification 01/30/25 Date Provider Signature Yes Required Provider Signature POC & Medical Necessity Shows Agreement With Physician NPI Number Write NPI# Here Physician Comment/ : Change Physician Signature Please Sign/Date Here & Date Requested
== END 2024-12-19 10:38 | disposition home or self-care (01) ==
PROVIDERS: PCP Student in an Organized Health Care Education/Training Program; Visit Provider Orthopaedic Surgery
DX: Z47.1 Aftercare following joint replacement surgery (principal); M17.11 Unilateral primary osteoarthritis, right knee; Z96.651 Presence of right artificial knee joint; M25.561 Pain in right knee; Z51.89 Encounter for other specified aftercare
CPT/HCPCS: 97110; 97112; 97140; 97161

== ENCOUNTER 2025-04-19 13:00 | Outpatient (RCR) | payer MEDICARE, OTHER, SELFPAY | END 2025-04-19 15:11 | disposition home or self-care (01) | PROVIDERS: PCP Student in an Organized Health Care Education/Training Program; Visit Provider Student in an Organized Health Care Education/Training Program | DX: S63.259D Unspecified dislocation of unspecified finger, subsequent encounter (principal); Z51.89 Encounter for other specified aftercare | CPT/HCPCS: 97110; 97140; 97165; 97530; X5282 ==